=== PATIENT | male | born 1950 | race Two or more races ===

== ENCOUNTER 2019-03-18 16:29 | Inpatient (IN) | payer OTHER ==
[2019-03-18 21:14] VITALS: BMI 18.8
--- NOTE | 2019-03-18 22:29 | HP ---
COWS - Scale Resting Pulse: 0= MO 80 or Below Sweatin=Flushed/Facial Moisture Restless Observation: 1= Difficult to Sit Still Pupil Size: 0= Normal to Room Light Bone or Joint Aches: 4=Acute Joint/Muscle Pain Runny Nose/ Eye Tearin= Runny Nose/Eyes (vomiting x 1) GI Upset > 30mins: 1= Stomach Cramp Tremor Observation: 2= Slight Tremor Visible Yawning Observation: 1= 1-2x During Session Anxiety or Irritability: 2=Irritable/Anxious Goose Flesh Skin: 3=Piloerection COWS Score: 18 CIWA Score - Admission Criteria [facility] Guidelines: Admission for Medically Managed Detox: Requires at least one of the followin. CIWA greater than 12 2. Seizures within the past 24 hours 3. Delirium tremens within the past 24 hours 4. Hallucinations within the past 24 hours 5. Acute intervention needed for co occurring medical disorder 6. Acute intervention needed for co occurring psychiatric disorder 7. Severe withdrawal that cannot be handled at a lower level of care (continued vomiting, continued diarrhea, abnormal vital signs) requiring intravenous medication and/or fluids 8. Admission ROS [facility] Chief Complaint: Heroin withdrawal symptoms Allergies/Adverse Reactions: Allergies Allergy/AdvReac Type Severity Reaction Status Date / Time No Known Allergies Allergy Verified 03/18/19 21:08 History of Present Illness: 69 years old male with a long history of heroin dependence is seeking admission to detox. Patient has been to previous detox and reports 25 years of sobriety. He has medical history of HIV +, Asthma and peripheral neuropathy. He denies suicide attempt and suicidal ideation at this tiime Exam Limitations: No Limitations - Ebola screening Have you traveled outside of the country in the last 21 days: No Have you had contact with anyone from an Ebola affected area: No Do you have a fever: No - Review of Systems Constitutional: Chills, Loss of Appetite, Malaise, Night Sweats, Changes in sleep, Weakness EENT: reports: Sinus Pressure Respiratory: reports: No Symptoms reported Cardiac: reports: Lightheadedness GI: reports: Poor Appetite, Poor Fluid Intake : reports: No Symptoms Reported Musculoskeletal: reports: Back Pain, Joint Pain, Muscle Pain Integumentary: reports: Dryness, Flushing Neuro: reports: Tingling, Tremors Endocrine: reports: No Symptoms Reported Hematology: reports: No Symptoms Reported Psychiatric: reports: Mood/Affect Appropiate, Orientated x3, Anxious Other Systems: Reviewed and Negative Patient History - Patient Medical History Hx Anemia: No Hx Asthma: Yes (Albuterol) Hx Chronic Obstructive Pulmonary Disease (COPD): No Hx Cancer: No Hx Cardiac Disorders: No Hx Congestive Heart Failure: No Hx Hypertension: Yes Hx Hypercholesterolemia: No Hx Pacemaker: No HX Cerebrovascular Accident: No Hx Seizures: No Hx Dementia: No Hx Diabetes: No Hx Gastrointestinal Disorders: No Hx Liver Disease: No Hx Genitourinary Disorders: No Hx Sexually Transmitted Disorders: No Hx Renal Disease (ESRD): No Hx Human Immunodeficiency Virus (HIV): Yes (Truvada, ) Hx Depression: Yes Hx Suicide Attempt: No Hx Bipolar Disorder: No Hx Schizophrenia: No - Patient Surgical History Past Surgical History: No Hx Neurologic Surgery: No Hx Cataract Extraction: No Hx Cardiac Surgery: No Hx Lung Surgery: No Hx Breast Surgery: No Hx Breast Biopsy: No Hx Abdominal Surgery: No Hx Appendectomy: No Hx Cholecystectomy: Yes Hx Genitourinary Surgery: No Hx Orthopedic Surgery: Yes Anesthesia Reaction: No - Reproductive History Patient is a Female of Child Bearing Age (11 -55 yrs old): No (Male) - Smoking Cessation Smoking history: Former smoker Have you smoked in the past 12 months: No Hx Chewing Tobacco Use: No Initiated information on smoking cessation: Yes 'Breaking Loose' booklet given: 03/18/19 - Substance & Tx. History Hx Alcohol Use: No Hx Substance Use: Yes Substance Use Type: Cocaine, Heroin Hx Substance Use Treatment: Yes ([facility];) - Substances abused Cocaine Substance route: Injection Frequency: Daily Amount used: $100 Age of first use: 69 Date of last use: 03/18/19 Family Disease History - Family Disease History Family Disease History: [place]: Father Admission Physical Exam BHS - Vital Signs Vital Signs: Vital Signs - 24 hr 03/18/19 21:08 Temperature 98.7 F Pulse Rate 62 Respiratory 16 Rate Blood Pressure 142/82 - Physical General Appearance: Yes: Moderate Distress, Alcohol on Breath, Tremorous, Sweating, Anxious HEENTM: Yes: EOMI, Normal ENT Inspection, Normal Voice, REINA Respiratory: Yes: Lungs Clear, Normal Breath Sounds, No Respiratory Distress Neck: Yes: Supple Breast: Yes: Breast Exam Deferred Cardiology: Yes: Regular Rhythm, Regular Rate Abdominal: Yes: Normal Bowel Sounds, Soft Genitourinary: Yes: Within Normal Limits Back: Yes: Normal Inspection Musculoskeletal: Yes: Back pain Extremities: Yes: Tremors Neurological: Yes: Alert, Normal Mood/Affect Integumentary: Yes: Normal Color, Warm Lymphatic: Yes: Within Normal Limits - Diagnostic (1) Opioid dependence with withdrawal Current Visit: Yes Status: Acute (2) Asthma Current Visit: Yes Status: Acute (3) HIV (human immunodeficiency virus infection) Current Visit: Yes Status: Acute (4) Peripheral neuropathy Current Visit: Yes Status: Acute Qualifiers: Peripheral neuropathy type: polyneuropathy, other Qualified Code(s): G62.89 - Other specified polyneuropathies Cleared for Admission [facility] - Detox or Rehab [facility] Level of Care: Medically Managed Detox Regimen/Protocol: Methadone Inpatient Rehab Admission - Rehab Decision to Admit Inpatient rehab admission?: No
[2019-03-18] MEDS ORDERED: MAGNESIUM HYDROX 2400MG/30ML ORAL SUSPENSION 30 ML CUP PO PRN (22:43)
[2019-03-18] MEDS ORDERED: cloNIDine HCL 0.1 MG TABLET PO PRN (22:43)
[2019-03-18] MEDS ORDERED: ACETAMINOPHEN 325 MG TABLET (FP) PO PRN ×2 (22:43)
[2019-03-18] MEDS ORDERED: MAGNESIUM CITRATE 300 ML BOTTLE PO PRN (22:43)
[2019-03-18] MEDS ORDERED: METHADONE HCL 10 MG TABLET (FOR DETOX USE ONLY) PO ONE (23:00)
[2019-03-19] MEDS: MENTHOL/PHENOL 1 EACH UD MM PRN ×2 (05:55→17:41)
--- NOTE | 2019-03-19 08:26 | EKG ---
Test Reason : Blood Pressure : / mmHG Vent. Rate : 057 BPM Atrial Rate : 057 BPM P-R Int : 140 ms QRS Dur : 090 ms QT Int : 422 ms P-R-T Axes : 069 073 069 degrees QTc Int : 410 ms SINUS BRADYCARDIA VOLTAGE CRITERIA FOR LEFT VENTRICULAR HYPERTROPHY ABNORMAL ECG NO PREVIOUS ECGS AVAILABLE Confirmed by ZANE JOHN, ATIF ([id number]) on 03/19/2019 8:26:02 AM Referred By: RAUL MARTINEZ Confirmed By:ATIF DEGROOT MD
[2019-03-19] MEDS ORDERED: METHADONE HCL 10 MG TABLET (FOR DETOX USE ONLY) PO ONE (10:00)
[2019-03-19] MEDS: PRENATAL VITAMINS W/ FOLIC ACID TABLET (FP) PO SCH (10:13)
--- NOTE | 2019-03-19 10:21 | PN ---
BHS COWS - Scale Resting Pulse: 0= [place] 80 or Below Sweatin=Flushed/Facial Moisture Restless Observation: 1= Difficult to Sit Still Pupil Size: 0= Normal to Room Light Bone or Joint Aches: 2= Severe Diffuse Aches Runny Nose/ Eye Tearin= Runny Nose/Eyes GI Upset > 30mins: 1= Stomach Cramp Tremor Observation of Outstretched Hands: 2= Slight Tremor Visible Yawning Observation: 2= >3x During Session Anxiety or Irritability: 2=Irritable/Anxious Goose Flesh Skin: 3=Piloerection COWS Score: 17 BHS Progress Note (SOAP) Subjective: running nose/nasal congestion body aches sweats shakes chills interrupted sleep poor appetite Objective: 03/19/19 10:20 Vital Signs Temperature 98.2 F 03/19/19 10:01 Pulse Rate 62 03/19/19 10:01 Respiratory Rate 16 03/19/19 10:01 Blood Pressure 122/68 03/19/19 10:01 O2 Sat by Pulse Oximetry (%) labs pending aaox3 ambulating no acute distress Assessment: 03/19/19 10:20 withdrawal sx Plan: continue detox increase fluids acitifed ordered ensure bid
[2019-03-19 12:42] LABS: ALBUMIN 3.3 g/dl (3.4-5.0); ALK PHOS 105 U/L (45-117); ANION GAP 5 MMOL/L (8-16); BILIRUBIN,TOTAL 0.5 mg/dL (0.2-1); BLOOD UREA NITROGEN 17 mg/dL (7-18); CHLORIDE 102 mmol/L (98-107); CO2 32 mmol/L (21-32); CREATININE 0.9 mg/dL (0.55-1.3); GLUCOSE,RANDOM 91 mg/dL (74-106); POTASSIUM 4.6 mmol/L (3.5-5.1); SGOT/AST 28 U/L (15-37); SGPT/ALT 20 U/L (13-61); SODIUM 138 mmol/L (136-145); TOT PROT 7.5 g/dl (6.4-8.2)
[2019-03-19 12:43] LABS: HEMATOCRIT 39.9 % (35.4-49); HEMOGLOBIN 12.7 GM/dL (11.7-16.9); MCH 26.8 pg (25.7-33.7); MCHC 31.7 g/dl (32.0-35.9); MEAN CELL VOLUME 84.5 fl (80-96); MEAN PLT VOLUME 8.9 fl (7.5-11.1); PLATELET COUNT 228 K/MM3 (134-434); RBC 4.72 M/mm3 (4.00-5.60); RDW 15.8 % (11.9-15.9); WHITE BLOOD COUNT 4.8 K/mm3 (4.0-10.0)
[2019-03-19] MEDS: EMTRICITABINE 200MG/TENOFOVIR 300MG PO SCH (13:46)
[2019-03-19] MEDS: P-EPHED 60MG/TRIPROLIDI 2.5MG TABLET PO PRN (17:41)
[2019-03-19] MEDS: MELATONIN 5 MG TABLETS PO PRN (22:43)
[2019-03-19] MEDS: METHOCARBAMOL 500 MG TABLET PO PRN (22:43)
[2019-03-19] MEDS: THIAMINE HCL 100 MG TABLET (FP) PO SCH (22:43)
[2019-03-20] MEDS ORDERED: METHADONE HCL 10 MG TABLET (FOR DETOX USE ONLY) PO ONE (10:00)
[2019-03-20] MEDS: PRENATAL VITAMINS W/ FOLIC ACID TABLET (FP) PO SCH (10:06)
[2019-03-20] MEDS: EMTRICITABINE 200MG/TENOFOVIR 300MG PO SCH (10:06)
[2019-03-20] MEDS ORDERED: ONDANSETRON *ODT* 4 MG TABLET SL PRN (11:50)
--- NOTE | 2019-03-20 11:54 | PN ---
S COWS - Scale Resting Pulse: 0= [place] 80 or Below Sweatin=Flushed/Facial Moisture Restless Observation: 1= Difficult to Sit Still Pupil Size: 0= Normal to Room Light Bone or Joint Aches: 2= Severe Diffuse Aches Runny Nose/ Eye Tearin= Runny Nose/Eyes GI Upset > 30mins: 0= None Tremor Observation of Outstretched Hands: 1= Tremor [place], Not Seen Yawning Observation: 1= 1-2x During Session Anxiety or Irritability: 2=Irritable/Anxious Goose Flesh Skin: 0=Smooth Skin COWS Score: 11 [facility] Progress Note (SOAP) Subjective: nasal congestion runny/teary eyes nausea muscle cramps interrupted sleep Objective: 03/20/19 11:52 Vital Signs Temperature 99.0 F 03/20/19 09:22 Pulse Rate 69 03/20/19 09:22 Respiratory Rate 16 03/20/19 09:22 Blood Pressure 127/77 03/20/19 09:22 O2 Sat by Pulse Oximetry (%) Laboratory Tests 03/19/19 03/19/19 03/19/19 07:30 07:30 07:30 WBC 4.8 RBC 4.72 Hgb 12.7 Hct 39.9 MCV 84.5 MCH 26.8 MCHC 31.7 L RDW 15.8 Plt Count 228 MPV 8.9 Sodium 138 Potassium 4.6 Chloride 102 Carbon Dioxide 32 Anion Gap 5 L BUN 17 Creatinine 0.9 Creat Clearance w eGFR 83.18 Random Glucose 91 Calcium 9.0 Total Bilirubin 0.5 AST 28 ALT 20 Alkaline Phosphatase 105 Total Protein 7.5 Albumin 3.3 L RPR Titer Nonreactive aaox3 ambulating no acute distress Assessment: 03/20/19 11:53 withdrawal sx Plan: continue detox increase fluids ocean spray acitifed prn baclofen valium prn zofran prn
[2019-03-20] MEDS: hydrOXYzine PAMOATE 25 MG CAPSULE (FP) PO PRN (13:37)
[2019-03-20] MEDS: BACLOFEN 10 MG TABLET (FP) PO SCH ×2 (13:37→23:05)
[2019-03-20] MEDS: diazePAM 5 MG TABLET PO PRN ×2 (13:37→23:06)
[2019-03-20] MEDS: SODIUM CHLORIDE NASAL SPRAY 44 ML BOTTLE NS PRN (13:38)
[2019-03-20] MEDS: P-EPHED 60MG/TRIPROLIDI 2.5MG TABLET PO PRN (13:38)
[2019-03-20] MEDS: THIAMINE HCL 100 MG TABLET (FP) PO SCH (23:04)
[2019-03-20] MEDS: MELATONIN 5 MG TABLETS PO PRN (23:07)
[2019-03-21] MEDS: BACLOFEN 10 MG TABLET (FP) PO SCH ×3 (05:35→23:00)
[2019-03-21] MEDS ORDERED: METHADONE HCL 10 MG TABLET (FOR DETOX USE ONLY) PO ONE (10:00)
[2019-03-21] MEDS: PRENATAL VITAMINS W/ FOLIC ACID TABLET (FP) PO SCH (10:11)
[2019-03-21] MEDS: EMTRICITABINE 200MG/TENOFOVIR 300MG PO SCH (10:11)
[2019-03-21] MEDS: diazePAM 5 MG TABLET PO PRN ×2 (10:14→18:59)
--- NOTE | 2019-03-21 11:36 | PN ---
BHS Progress Note (SOAP) Subjective: body aches sweats interrupted sleep anxiety i am having craving to use if i go home Objective: 03/21/19 11:36 Vital Signs Temperature 98.2 F 03/21/19 09:55 Pulse Rate 61 03/21/19 09:55 Respiratory Rate 18 03/21/19 09:55 Blood Pressure 122/83 03/21/19 09:55 O2 Sat by Pulse Oximetry (%) aaox3 ambulating no acute distress Assessment: 03/21/19 11:42 withdrawal sx Plan: continue detox increase fluids d/c on Sunday order placed.
[2019-03-21] MEDS: IBUPROFEN 400 MG TABLET (FP) PO PRN (21:04)
[2019-03-21] MEDS: MAG HYDROX/AL HYDROX/SIMETH 30 ML UNIT-DOSE CUP PO PRN (21:05)
[2019-03-21] MEDS ORDERED: ASPIRIN 81 MG CHEWABLE TABLETS PO ONE (21:06)
--- NOTE | 2019-03-21 21:39 | PN ---
MAR[facility] Progress Note Note: Patient complained of chest pain. EKG done and Aspirin 81mg tablet oral ordered. Patient was not relieved and requested to be transferred to ER . Endorsed to Dr. Sims
[2019-03-21] MEDS: THIAMINE HCL 100 MG TABLET (FP) PO SCH (23:01)
[2019-03-22] MEDS: BACLOFEN 10 MG TABLET (FP) PO SCH ×3 (05:46→21:50)
[2019-03-22] MEDS: diazePAM 5 MG TABLET PO PRN ×4 (05:47→22:43)
[2019-03-22] MEDS ORDERED: METHADONE HCL 5 MG TABLET (FOR DETOX USE ONLY) PO ONE (06:00)
--- NOTE | 2019-03-22 10:30 | PN ---
S Progress Note (SOAP) Subjective: c/o body aches, nausea, and headache. Objective: 03/22/19 10:28 Vital Signs 03/22/19 03/22/19 08:22 09:50 Temperature 97.9 F 97.9 F Pulse Rate 56 L 53 L Respiratory 18 16 Rate Blood Pressure 154/87 140/92 Assessment: 03/22/19 10:28 AOX3, no distress noted, full rom withdrawal symptoms. Plan: continue detox increase fluids continue antiemetic/pain meds prn
[2019-03-22] MEDS: PRENATAL VITAMINS W/ FOLIC ACID TABLET (FP) PO SCH (12:02)
[2019-03-22] MEDS: EMTRICITABINE 200MG/TENOFOVIR 300MG PO SCH (12:02)
[2019-03-22] MEDS: MAG HYDROX/AL HYDROX/SIMETH 30 ML UNIT-DOSE CUP PO PRN ×2 (12:02→21:52)
[2019-03-22] MEDS: SODIUM CHLORIDE NASAL SPRAY 44 ML BOTTLE NS PRN (12:12)
[2019-03-22] MEDS: hydrOXYzine PAMOATE 25 MG CAPSULE (FP) PO PRN (12:14)
[2019-03-22] MEDS: THIAMINE HCL 100 MG TABLET (FP) PO SCH (21:59)
[2019-03-23] MEDS: diazePAM 5 MG TABLET PO PRN (04:34)
[2019-03-23] MEDS: BACLOFEN 10 MG TABLET (FP) PO SCH ×3 (06:18→23:02)
[2019-03-23] MEDS: PRENATAL VITAMINS W/ FOLIC ACID TABLET (FP) PO SCH (10:39)
[2019-03-23] MEDS: EMTRICITABINE 200MG/TENOFOVIR 300MG PO SCH (10:39)
--- NOTE | 2019-03-23 12:25 | EKG ---
Test Reason : Blood Pressure : / mmHG Vent. Rate : 059 BPM Atrial Rate : 059 BPM P-R Int : 154 ms QRS Dur : 084 ms QT Int : 426 ms P-R-T Axes : 081 075 077 degrees QTc Int : 421 ms POOR DATA QUALITY, INTERPRETATION MAY BE ADVERSELY AFFECTED SINUS BRADYCARDIA WITH PREMATURE ATRIAL COMPLEXES VOLTAGE CRITERIA FOR LEFT VENTRICULAR HYPERTROPHY ABNORMAL ECG WHEN COMPARED WITH ECG OF 18-MAR-2019 22:50, PREMATURE ATRIAL COMPLEXES ARE NOW PRESENT Confirmed by TOSIN ALVES MD ([id number]) on 03/23/2019 12:25:41 PM Referred By: Confirmed By:TOSIN ALVES MD
[2019-03-23] MEDS: MAG HYDROX/AL HYDROX/SIMETH 30 ML UNIT-DOSE CUP PO PRN (14:44)
[2019-03-23] MEDS ORDERED: RANITIDINE HCL 150 MG TABLET (FP) PO ONE (14:45)
--- NOTE | 2019-03-23 15:10 | PN ---
BHS COWS - Scale Resting Pulse: 0= CT 80 or Below Sweatin= No chills or Flushing Restless Observation: 0= Sits Still Pupil Size: 0= Normal to Room Light Bone or Joint Aches: 1= Mild Discomfort Runny Nose/ Eye Tearin= None GI Upset > 30mins: 1= Stomach Cramp Tremor Observation of Outstretched Hands: 0= None Yawning Observation: 0= None Anxiety or Irritability: 2=Irritable/Anxious Goose Flesh Skin: 0=Smooth Skin COWS Score: 4 BHS Progress Note (SOAP) Subjective: Anxious, stomachache, back pain, abdominal pain Objective: 03/23/19 15:09 Last Vital Signs Temp Pulse Resp BP Pulse Ox 98.6 F 72 16 158/92 03/23/19 14:09 03/23/19 14:09 03/23/19 14:09 03/23/19 14:09 B/P elevated 158/92 (has htn: on med) PE: Resp: lungs ctab/l, no adventitious breath sounds CV: rrr, s1s2+, apical rate 80 bmp, no m/g/r Abd: soft, nt, nd, + bs x4, no rebound tenderness, old healed surgery scar noted mid abdomen Neuro: A/A/Ox3, in nad, looks fragile/cachexic, gait steady Laboratory Tests 03/19/19 03/19/19 03/19/19 07:30 07:30 07:30 WBC 4.8 RBC 4.72 Hgb 12.7 Hct 39.9 MCV 84.5 MCH 26.8 MCHC 31.7 L RDW 15.8 Plt Count 228 MPV 8.9 Sodium 138 Potassium 4.6 Chloride 102 Carbon Dioxide 32 Anion Gap 5 L BUN 17 Creatinine 0.9 Creat Clearance w eGFR 83.18 Random Glucose 91 Calcium 9.0 Total Bilirubin 0.5 AST 28 ALT 20 Alkaline Phosphatase 105 Total Protein 7.5 Albumin 3.3 L RPR Titer Nonreactive Labs reviewed Assessment: 03/23/19 15:14 Withdrawal symptoms Noted with HTN, not treated Plan: Continue detox Encouraged PO water intake HTN: start norvasc 5mg PO daily, first dose today Stomachache: zantac 150mg PO bid as maalox not effective as per RN, send h. pylori serum in AM Patient for discharge tomorrow to [facility] Patient is stable for rehab admission
[2019-03-23] MEDS: amLODIPine BESYLATE 5 MG TABLET (FP) PO ONE (16:04)
[2019-03-23] MEDS: IBUPROFEN 400 MG TABLET (FP) PO PRN (20:39)
[2019-03-23] MEDS: THIAMINE HCL 100 MG TABLET (FP) PO SCH (23:03)
[2019-03-23] MEDS: RANITIDINE HCL 150 MG TABLET (FP) PO SCH (23:03)
[2019-03-24] MEDS: METHOCARBAMOL 500 MG TABLET PO PRN (01:21)
--- NOTE | 2019-03-24 01:35 | PN ---
S Progress Note Note: MD'S NOTE: CALLED TO SEE THE PT. WHO IS C/O ONGOING PAIN IN THE CHEST AND ALL OVER THE BODY H/O SIMILAR EPISODES IN THE PAST FEW DAYS++. V/S: -137/91 O/E: THE PT. IS ANGUIANO X 3 AND MOANING NOW AND THEN BUT NOT IN DISTRESS MUSCLE WASTING FROM AIDS++ S/E: CVS: NO JVD, NL HEART SOUNDS, NO MURMURS LUNGS: VESICULAR BREATH SOUNDS, NO RALES, NO RHONCHI ABD: SOFT, NO RIGIDITY, BS+ PLEASE NOTE: MERE TOUCHING THE BODY ELICITS PAIN IMPRESSION: MUSCULO-SKELETAL PAIN/NEUROPATHIC PAIN PLANS: -EKG: NO SIGNIFICANT NEW ST-T CHANGES NOTED -TO CONTINUE MUSCLE RELAXANTS AND ANALGESICS -NEURONTIN 100MGS PO TID -OBSERVATION PROVIDER: AMBER CATALAN MD
[2019-03-24] MEDS: GABAPENTIN 100 MG CAPSULE (FP) PO SCH ×4 (01:43→21:07)
[2019-03-24] MEDS: BACLOFEN 10 MG TABLET (FP) PO SCH ×3 (07:11→21:07)
--- NOTE | 2019-03-24 10:01 | EKG ---
Test Reason : Blood Pressure : / mmHG Vent. Rate : 068 BPM Atrial Rate : 068 BPM P-R Int : 144 ms QRS Dur : 082 ms QT Int : 412 ms P-R-T Axes : 083 077 082 degrees QTc Int : 438 ms SINUS RHYTHM WITH MARKED SINUS ARRHYTHMIA VOLTAGE CRITERIA FOR LEFT VENTRICULAR HYPERTROPHY ABNORMAL ECG WHEN COMPARED WITH ECG OF 22-MAR-2019 00:42, NO SIGNIFICANT CHANGE WAS FOUND Confirmed by BOBBY LIMA MD ([id number]) on 03/24/2019 10:00:46 AM Referred By: Confirmed By:BOBBY LIMA MD
[2019-03-24] MEDS: EMTRICITABINE 200MG/TENOFOVIR 300MG PO SCH (10:53)
[2019-03-24] MEDS: RANITIDINE HCL 150 MG TABLET (FP) PO SCH ×2 (10:54→21:07)
[2019-03-24] MEDS: PRENATAL VITAMINS W/ FOLIC ACID TABLET (FP) PO SCH (10:54)
[2019-03-24] MEDS: amLODIPine BESYLATE 5 MG TABLET (FP) PO SCH (10:54)
--- NOTE | 2019-03-24 13:52 | DS ---
[facility] Detox Discharge Summary Admission Date: 03/18/19 Discharge Date: 03/24/19 - History Present History: Opioid Dependence Additional Comments: PATIENT GOING TO [facility] ([place], [place]) FOR AFTERCARE. PATIENT ADVISED TO FOLLOW-UP WITH [facility] ([place], [place]) AFTER DISCHARGE FROM REHAB UNIT FOR GENERAL MEDICAL ASSESSMENT AND FOR CHEST PAIN (AND BODY PAIN) THAT OCCURRED WHILE HE WAS ON DETOX UNIT. PATIENT VERBALIZED UNDERSTANDING OF RECOMMENDATION. PATIENT WAS EVALUATED AT [facility] ER YESTERDAY FOR THIS CONDITION. PATIENT WAS DISCHARGED FORM DETOX UNIT TO BE TAKEN OVER TO REHAB UNIT IN STABLE MEDICAL CONDITION. Pertinent Past History: H.I.V., Nicotine Dependence, Chest Pain, Asthma, Peripheral Neuropathy, HTN, Depression. - Physical Exam Results Vital Signs: Vital Signs Temperature 97.7 F 03/24/19 09:02 Pulse Rate 78 03/24/19 09:02 Respiratory Rate 16 03/24/19 09:02 Blood Pressure 117/80 03/24/19 09:02 O2 Sat by Pulse Oximetry (%) Pertinent Admission Physical Exam Findings: WITHDRAWAL SYMPTOMS. Laboratory Tests 03/19/19 03/19/19 03/19/19 07:30 07:30 07:30 WBC 4.8 RBC 4.72 Hgb 12.7 Hct 39.9 MCV 84.5 MCH 26.8 MCHC 31.7 L RDW 15.8 Plt Count 228 MPV 8.9 Sodium 138 Potassium 4.6 Chloride 102 Carbon Dioxide 32 Anion Gap 5 L BUN 17 Creatinine 0.9 Creat Clearance w eGFR 83.18 Random Glucose 91 Calcium 9.0 Total Bilirubin 0.5 AST 28 ALT 20 Alkaline Phosphatase 105 Total Protein 7.5 Albumin 3.3 L RPR Titer Nonreactive LABS NOTED. - Treatment Hospital Course: Detox Protocol Followed, Detoxed Safely, Responded well, Discharged Condition Good, Rehab Referral Accepted Patient has Accepted a Rehab Referral to: [facility] ([place], [place]). - Medication Discharge Medications: Ambulatory Orders Emtricitabine/Tenofovir [Truvada -] 1 each PO DAILY 03/18/19 - Diagnosis (1) Asthma Current Visit: Yes Status: Acute Qualifiers: Asthma severity: unspecified severity Asthma persistence: unspecified Asthma complication type: uncomplicated Qualified Code(s): J45.909 - Unspecified asthma, uncomplicated (2) HIV (human immunodeficiency virus infection) Current Visit: Yes Status: Acute Qualifiers: HIV symptom status: unspecified Qualified Code(s): B20 - Human immunodeficiency virus [HIV] disease (3) Opioid dependence with withdrawal Current Visit: Yes Status: Acute (4) Peripheral neuropathy Current Visit: Yes Status: Acute Qualifiers: Peripheral neuropathy type: polyneuropathy, other Qualified Code(s): G62.89 - Other specified polyneuropathies (5) Chest pain Current Visit: Yes Status: Acute Qualifiers: Chest pain type: unspecified Qualified Code(s): R07.9 - Chest pain, unspecified - AMA Did Patient Leave Against Medical Advice: No
--- NOTE | 2019-03-24 13:59 | HP ---
[facility] Rehab Assess/Revision - Admission History Admitted to Rehab from: [facility] Date of Admission to Rehab: 03/24/2019 - Vital signs Vital Signs: Vital Signs Period Temp Pulse Resp BP Sys/Lowry Pulse Ox Last 24 Hr 97.7 F-98.9 F 70-84 16-20 117-158/80-99 - Findings Detox History & Physical reviewed: Yes Concur with findings: Yes Comments/Additional Findings: PATIENT'S MEDICAL / MEDICATION HISTORY REVIEWED PRIOR TO DISCHARGE FROM DETOX UNIT. PATIENT ADVISED TO FOLLOW-UP WITH [facility] ([place], [place]) AFTER DISCHARGE FROM REHAB UNIT FOR GENERAL MEDICAL ASSESSMENT AND FOR CHEST PAIN (AND BODY PAIN) THAT OCCURRED WHILE HE WAS ON DETOX UNIT. PATIENT VERBALIZED UNDERSTANDING OF RECOMMENDATION. PATIENT WAS EVALUATED AT [facility] ER YESTERDAY FOR THIS CONDITION. WILL CONTINUE TO MONITOR PATIENT FOR ANY FURTHER DEVELOPEMENT IN / RECURRENCES OF CHEST / BODY PAIN WHILE HE IS ADMITTED ON REHAB UNIT. PATIENT WAS DISCHARGED FROM DETOX UNIT TO BE TAKEN OVER TO REHAB UNIT IN STABLE MEDICAL CONDITION. Inpatient Rehab Admission - Rehab Decision to Admit Inpatient rehab admission?: Yes - Initial Determination Are CD services needed?: Yes Free of communicable disease: Yes Not in need of hospitalization: Yes - Rehab Admission Criteria Previous failed treatment: Yes Poor recovery environment: Yes Comorbidities: Yes Lacks judgement: Yes Patient is meeting Inpatient Rehab admission criteria:: Yes
--- NOTE | 2019-03-24 14:24 | PN ---
[facility] Progress Note Note: PER PHARMACIST 'LEONILA' AT PATIENT'S PHARMACY ([address] [place] [address]), PATIENT IS PRESCRIBED DESCOVY (1 TABLET PO DAILY) AND TIVICAY, 50 MG (1 TABLET PO) DAILY. BOTH MEDICATIONS LAST DISPENSED 03/05/2019. ACCORDING TO LEONILA, PATIENT HAS BEEN PRESCRIBED AND DISPENSED BOTH MEDICATIONS TOGETHER FOR THE LAST SEVERAL MONTHS. AFTER CONSULTATION WITH [facility] PHARMACIST IVY, PATIENT WILL BE PRESCRIBED BOTH MEDICATIONS WHILE ADMITTED TO REHAB UNIT. Bubba WILSON NP
[2019-03-24] MEDS: THIAMINE HCL 100 MG TABLET (FP) PO SCH (21:07)
[2019-03-24] MEDS: IBUPROFEN 400 MG TABLET (FP) PO PRN (21:07)
[2019-03-25] MEDS: MELATONIN 5 MG TABLETS PO PRN ×2 (00:57→21:12)
[2019-03-25] MEDS: GABAPENTIN 100 MG CAPSULE (FP) PO SCH ×3 (07:37→21:11)
[2019-03-25] MEDS: BACLOFEN 10 MG TABLET (FP) PO SCH ×3 (07:37→21:11)
[2019-03-25] MEDS: RANITIDINE HCL 150 MG TABLET (FP) PO SCH ×2 (10:56→21:11)
[2019-03-25] MEDS: PRENATAL VITAMINS W/ FOLIC ACID TABLET (FP) PO SCH (10:56)
[2019-03-25] MEDS: amLODIPine BESYLATE 5 MG TABLET (FP) PO SCH (10:56)
[2019-03-25] MEDS: EMTRICITABINE/TENOFOV ALAFENAM (DESCOVY) TABLET PO SCH (10:57)
[2019-03-25] MEDS: DOLUTEGRAVIR SODIUM 50 MG TABLET (NON-FORMULARY) PO SCH (10:57)
--- NOTE | 2019-03-25 11:13 | PN ---
[facility] Progress Note Note: PT IS A 69 Y/O MALE WITH A HX OF HIV+, ASTHMA AND HTN HERE IN REHAB. 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 STATED PT HAS POSSIBLE PNEUMONIA(SEE CXR IMPRESSION BELOW ). PT CAME TO REHAB YESTERDAY 03/24/19 FROM DETOX. PT DENIES CURRENT C/P. PT REPORTS STOMACH UPSET WITH N/V YESTERDAY BUT NOT TODAY. PT UNABLE TO REMEMBER THE LAST NAME OF HIS PCP BUT STATES HER NAME IS NIR ON [address] [place] AND [address] [place] [address]. PT ALSO REPORTS HE HAD BEEN TO AN ER ???[facility] A FEW WEEKS AGO AND WAS TOLD HE HAD LEFT PNEUMONIA AND TOOK 4 PILLS OF ANTIBIOTICS. Vital Signs - 24 hr 03/24/19 03/25/19 03/25/19 15:18 00:30 03:30 Temperature 97.4 F L Pulse Rate 86 Respiratory 16 18 18 Rate Blood Pressure 117/71 03/25/19 06:46 Temperature 97.1 F L Pulse Rate 80 Respiratory 16 Rate Blood Pressure 120/65 Laboratory Tests 03/19/19 03/19/19 03/19/19 07:30 07:30 07:30 WBC 4.8 RBC 4.72 Hgb 12.7 Hct 39.9 MCV 84.5 MCH 26.8 MCHC 31.7 L RDW 15.8 Plt Count 228 MPV 8.9 Sodium 138 Potassium 4.6 Chloride 102 Carbon Dioxide 32 Anion Gap 5 L BUN 17 Creatinine 0.9 Creat Clearance w eGFR 83.18 Random Glucose 91 Calcium 9.0 Total Bilirubin 0.5 AST 28 ALT 20 Alkaline Phosphatase 105 Total Protein 7.5 Albumin 3.3 L RPR Titer Nonreactive LABS REVIEWED WNL APPEARANCE:CACHEXIC, WEAK, SLOW ON AMBULATION WITH CANE CARDIAC:S1 S2 RRR, NO MM LUNGS:CTA, BILAT. NO WHEEZE, OR RHONCHI ABDOMEN:SOFT , SLIGHT EPIGASTRIC TENDERNESS-ON RANITIDINE EXTREMITIES:LOWER LEGS DRY/SCALY AND ASHY. NO SWELLING. TOE FUNGUS UPPER EXTREMITIES;BOTH LATERAL ASPECT OF HANDS AT BASES OF 5TH DIGIT WITH IVDU SITES. SLIGHT SWELLING, PAIN AND HARD ON PALPATION. POOR SKIN TUGOR CXR IMPRESSION:LARGE HEART. SLIGHT INCREASE IN LUNG MARKINGS LEFT MID AND LOWER LUNG FIELD COULD INDICATE EARLY INFILTRATE OR ATELECTASIS. CLIPS BY GE JUNCTION. FOLLOW- UP RECOMMENDED. PLAN:PT APPEARS ASYMPTOMATIC AT THIS TIME. NO FEVER, COUGH, OR ADVENTITIOUS LUNG SOUNDS. ALSO, REVIEW OF PT'S OUTSIDE PHARMACY MEDICATIONS AND PT HISTORY INDICATED PT WAS TREATED WITH AZYTHROMYCIN X 4 DAYS POSTED 03/04/19(MAYBE AFTER THE ER VISIT AT ???[facility]?). PT REPORTS HE COMPLETED THE TREATMENT, ALTHOUGH PT IS A POOR HISTORIAN AND UNABLE TO REMEMBER DETAILS. THIS CASE WAS D/W DR. WEISS AND WE CONCLUDED PT WILL BE FOLLOWED UP WITH ANOTHER XRAY IN 3-4 WEEKS/BEFORE DISCHARGE FOR ANY CHANGES. WILL MONITOR PATIENT FOR ACUTE/NEW SYMPTOMS FOR FOLLOW UP AT THE ER/TREATMENT.
[2019-03-25] MEDS ORDERED: AZITHROMYCIN 250 MG TABLET PO ONE (11:34)
[2019-03-25] MEDS ORDERED: AMOX TR/POT CLAV 875MG/125MG TABLETS (FP) PO ONE (12:00)
[2019-03-25] MEDS: BACITRACIN 15 GM TUBE TOPICAL OINTMENT TP SCH ×2 (14:16→22:16)
[2019-03-25] MEDS ORDERED: AMOX TR/POT CLAV 875MG/125MG TABLETS (FP) PO SCH (17:30)
[2019-03-25] MEDS: THIAMINE HCL 100 MG TABLET (FP) PO SCH (22:16)
[2019-03-26] MEDS: BACLOFEN 10 MG TABLET (FP) PO SCH ×3 (06:56→22:37)
[2019-03-26] MEDS: GABAPENTIN 100 MG CAPSULE (FP) PO SCH ×3 (06:56→22:37)
[2019-03-26] MEDS ORDERED: AZITHROMYCIN 250 MG TABLET PO SCH (10:00)
[2019-03-26] MEDS: amLODIPine BESYLATE 5 MG TABLET (FP) PO SCH (10:21)
[2019-03-26] MEDS: RANITIDINE HCL 150 MG TABLET (FP) PO SCH ×2 (10:21→22:37)
[2019-03-26] MEDS: PRENATAL VITAMINS W/ FOLIC ACID TABLET (FP) PO SCH (10:21)
[2019-03-26] MEDS: DOLUTEGRAVIR SODIUM 50 MG TABLET (NON-FORMULARY) PO SCH (10:22)
[2019-03-26] MEDS: EMTRICITABINE/TENOFOV ALAFENAM (DESCOVY) TABLET PO SCH (10:22)
[2019-03-26] MEDS: BACITRACIN 15 GM TUBE TOPICAL OINTMENT TP SCH ×2 (10:23→22:39)
--- NOTE | 2019-03-26 11:34 | PN ---
[facility] Progress Note Note: CALLED BY NURSE RONNIE TO EVALUATE A PT WITH C/O CHEST PAIN ESPECIALLY WHEN COUGHING,NAUSEA,VOMITING WITH STOMACH DISCOMFORT AND SOB. PT WAS EVALUATED IN THE ED ON 03/21/19 WITH CHEST PAIN AND SENT BACK TO [facility]. PORTABLE CHEST XRAY AT ED WITH SLIGHT INFILTRATE(SEE NOTE OF 03/25/19). PT REPORTED ANTIBIOTICS TREATMENT WITH AZYTHROMYCIN X "4 PILLS" 2-3 WEEKS AGO FOR "PNEUMONIA". Vital Signs 03/26/19 03/26/19 03/26/19 06:49 08:56 11:20 Temperature 97.3 F L Pulse Rate 80 90 91 H Respiratory 16 20 Rate Blood Pressure 116/73 111/72 149/92 O2 Sat by Pulse 97 Oximetry (%) PHYSICAL EXAM ALERT O X 3 CARDIAC:S1 S2 ,RRR EKG:PAC LVH WITH REPOLARIZATION ABNORMALITIES PROLONGED QT ABNORMAL ECG SIGNIFICANT CHANGES COMPARED TO PREVIOUS ECG OF 03/24/19 LUNGS;CTA, BILAT. NO WHEEZE OR RHONCHI O2 2L NC ABDOMEN:SOFT, TENDER TO PALPATE BRYAN. EPIGASTRIC REGION EXTREMITIES:NO EDEMA/CYANOSIS PLAN:TRANSFER PT VIA AMBULANCE AND EVALUATE IN ER FOR TREATMENT. SPOKE TO DR. MERLOS AT THE [facility] ER. INFORMED DR. Merlos PORTABLE CXR DONE IN THE ED ON 03/21/19. PT MAY RETURN TO [facility] AFTER STABILIZATION AND CLEARANCE TO CONTINUE REHAB TREATMENT.
[2019-03-26] MEDS ORDERED: ALBUTEROL SO4 8 GM HFA INHALER IH PRN (11:56)
--- NOTE | 2019-03-26 15:21 | EKG ---
Test Reason : Blood Pressure : / mmHG Vent. Rate : 082 BPM Atrial Rate : 082 BPM P-R Int : 142 ms QRS Dur : 086 ms QT Int : 418 ms P-R-T Axes : 076 067 078 degrees QTc Int : 488 ms SINUS RHYTHM WITH PREMATURE ATRIAL COMPLEXES LEFT VENTRICULAR HYPERTROPHY WITH REPOLARIZATION ABNORMALITY PROLONGED QT ABNORMAL ECG WHEN COMPARED WITH ECG OF 24-MAR-2019 00:13, PREMATURE ATRIAL COMPLEXES ARE NOW PRESENT T WAVE AMPLITUDE HAS DECREASED IN INFERIOR LEADS NONSPECIFIC T WAVE ABNORMALITY NOW EVIDENT IN LATERAL LEADS Confirmed by ZANE JOHN, ATIF ([id number]) on 03/26/2019 3:20:50 PM Referred By: Loulou ROBLES Confirmed By:ATIF DEGROOT MD
[2019-03-26] MEDS: THIAMINE HCL 100 MG TABLET (FP) PO SCH (22:37)
[2019-03-26] MEDS: IBUPROFEN 400 MG TABLET (FP) PO PRN (22:37)
[2019-03-27] MEDS: MELATONIN 5 MG TABLETS PO PRN ×2 (00:47→21:09)
[2019-03-27] MEDS: P-EPHED 60MG/TRIPROLIDI 2.5MG TABLET PO PRN (00:48)
[2019-03-27] MEDS: GABAPENTIN 100 MG CAPSULE (FP) PO SCH ×3 (06:22→21:08)
[2019-03-27] MEDS: BACLOFEN 10 MG TABLET (FP) PO SCH ×3 (06:22→21:08)
[2019-03-27] MEDS: IBUPROFEN 400 MG TABLET (FP) PO PRN ×2 (06:22→21:09)
--- NOTE | 2019-03-27 09:45 | PN ---
[facility] Progress Note Note: PT RETURNED FROM ER BACK TO [facility] YESTERDAY. Vital Signs - 24 hr 03/26/19 03/26/19 03/27/19 11:20 22:16 00:30 Temperature 98.6 F Pulse Rate 91 H 76 Respiratory 20 18 18 Rate Blood Pressure 149/92 125/89 O2 Sat by Pulse 97 Oximetry (%) 03/27/19 06:39 Temperature 98.2 F Pulse Rate 79 Respiratory 18 Rate Blood Pressure 129/83 O2 Sat by Pulse Oximetry (%) Laboratory Tests 03/19/19 03/19/19 03/19/19 07:30 07:30 07:30 WBC 4.8 RBC 4.72 Hgb 12.7 Hct 39.9 MCV 84.5 MCH 26.8 MCHC 31.7 L RDW 15.8 Plt Count 228 MPV 8.9 Sodium 138 Potassium 4.6 Chloride 102 Carbon Dioxide 32 Anion Gap 5 L BUN 17 Creatinine 0.9 Creat Clearance w eGFR 83.18 POC Glucometer Random Glucose 91 Calcium 9.0 Total Bilirubin 0.5 AST 28 ALT 20 Alkaline Phosphatase 105 Total Protein 7.5 Albumin 3.3 L RPR Titer Nonreactive H. pylori IgG Antibody H. pylori IgA Antibody 03/24/19 03/26/19 07:40 11:48 WBC RBC Hgb Hct MCV MCH MCHC RDW Plt Count MPV Sodium Potassium Chloride Carbon Dioxide Anion Gap BUN Creatinine Creat Clearance w eGFR POC Glucometer 102 Random Glucose Calcium Total Bilirubin AST ALT Alkaline Phosphatase Total Protein Albumin RPR Titer H. pylori IgG Antibody 1.17 H H. pylori IgA Antibody <9.0 TO FOLLOW UP ON THE ABOVE RESULT. PT CURRENTLY ON AZITHROMYCIN AND ZANTAC.
[2019-03-27] MEDS: BACITRACIN 15 GM TUBE TOPICAL OINTMENT TP SCH ×2 (10:24→21:07)
[2019-03-27] MEDS: amLODIPine BESYLATE 5 MG TABLET (FP) PO SCH (10:25)
[2019-03-27] MEDS: RANITIDINE HCL 150 MG TABLET (FP) PO SCH ×2 (10:25→21:07)
[2019-03-27] MEDS: PRENATAL VITAMINS W/ FOLIC ACID TABLET (FP) PO SCH (10:25)
[2019-03-27] MEDS: EMTRICITABINE/TENOFOV ALAFENAM (DESCOVY) TABLET PO SCH (10:26)
[2019-03-27] MEDS: DOLUTEGRAVIR SODIUM 50 MG TABLET (NON-FORMULARY) PO SCH (10:26)
[2019-03-27] MEDS: AZITHROMYCIN 250 MG TABLET PO SCH (11:52)
[2019-03-27] MEDS ORDERED: ALBUTEROL SO4 2.5/IPRATROPIUM 0.5 INH SOL 3 ML VIAL.NEB. NEB PRN (12:23)
[2019-03-27] MEDS: BISMUTH SUBSALICYLATE 524 MG/30 ML UD PO PRN (19:22)
[2019-03-27] MEDS: THIAMINE HCL 100 MG TABLET (FP) PO SCH (21:08)
[2019-03-28] MEDS: MAG HYDROX/AL HYDROX/SIMETH 30 ML UNIT-DOSE CUP PO PRN (01:57)
[2019-03-28] MEDS: GABAPENTIN 100 MG CAPSULE (FP) PO SCH ×3 (06:45→21:16)
[2019-03-28] MEDS: BACLOFEN 10 MG TABLET (FP) PO SCH ×3 (06:45→21:16)
[2019-03-28] MEDS: IBUPROFEN 400 MG TABLET (FP) PO PRN ×2 (08:57→21:17)
[2019-03-28] MEDS: DOLUTEGRAVIR SODIUM 50 MG TABLET (NON-FORMULARY) PO SCH (10:05)
[2019-03-28] MEDS: RANITIDINE HCL 150 MG TABLET (FP) PO SCH ×2 (10:06→21:16)
[2019-03-28] MEDS: amLODIPine BESYLATE 5 MG TABLET (FP) PO SCH (10:06)
[2019-03-28] MEDS: PRENATAL VITAMINS W/ FOLIC ACID TABLET (FP) PO SCH (10:06)
[2019-03-28] MEDS: AZITHROMYCIN 250 MG TABLET PO SCH (10:06)
[2019-03-28] MEDS: EMTRICITABINE/TENOFOV ALAFENAM (DESCOVY) TABLET PO SCH (10:07)
[2019-03-28] MEDS: BACITRACIN 15 GM TUBE TOPICAL OINTMENT TP SCH ×2 (10:08→21:16)
--- NOTE | 2019-03-28 13:08 | PN ---
[facility] Progress Note Note: EFFORT TO REACH PT'S PCP DR. NIR ZHAO TODAY AT [facility] WAS UNSUCCESSFUL. SPOKE TO A GENTLEMAN WHO STATED "[facility] ARE BUSY" HE TRANSFERRED ME TO AN UNKNOWN NUMBER WHICH QUICKLY DISCONNECTED. ANOTHER CALL WAS PLACED TO THEM AND A LADY ANSWERED AND INPATIENTLY TRANSFERRED THE PHONE BEFORE I COULD PRESENT ANY REQUEST. MEANWHILE, MR PERDOMO WAS WITH ME LISTENING AND WAITING TO SPEEK TO HIS PROVIDERS. HOWEVER, PT WAS TAKEN TO HIS COUNSELOR, ANTONIO WHERE HE WILL TRY MAKING THE CALL TO [facility]. PT NEEDED TO CONFIRM HIS NEXT DOCTOR'S APPOINTMENT WHICH HE LEFT THE PAPER AT HOME AND DOES NOT REMEMBER. PT WILL TAKE ALL THE [facility] ER DISCHARGE PAPERS WELL ALL DISCHARGE PAPERS FROM REHAB TREATMENT TO HIS PRIMARY CARE PROVIDER UPON DISCHARGE FOR FOLLOW UP CARE. PT IS OOB AND AMBULATING WITH NO DIFFICULTY WITH CANE. ALERT O X 3. Vital Signs 03/28/19 03/28/19 06:39 10:00 Temperature 98.1 F Pulse Rate 81 85 Respiratory 18 Rate Blood Pressure 142/75 113/68 PLAN:CONTINUE REHAB MONITOR SAFETY.
[2019-03-28] MEDS: SODIUM CHLORIDE NASAL SPRAY 44 ML BOTTLE NS PRN ×2 (14:39→21:19)
[2019-03-28] MEDS: MELATONIN 5 MG TABLETS PO PRN (21:16)
[2019-03-28] MEDS: THIAMINE HCL 100 MG TABLET (FP) PO SCH (21:16)
[2019-03-29] MEDS: MELATONIN 5 MG TABLETS PO PRN ×2 (02:20→21:14)
[2019-03-29] MEDS: BACLOFEN 10 MG TABLET (FP) PO SCH ×3 (06:10→21:14)
[2019-03-29] MEDS: GABAPENTIN 100 MG CAPSULE (FP) PO SCH ×3 (06:10→21:14)
[2019-03-29] MEDS: amLODIPine BESYLATE 5 MG TABLET (FP) PO SCH (09:48)
[2019-03-29] MEDS: RANITIDINE HCL 150 MG TABLET (FP) PO SCH ×2 (09:48→21:14)
[2019-03-29] MEDS: PRENATAL VITAMINS W/ FOLIC ACID TABLET (FP) PO SCH (09:48)
[2019-03-29] MEDS: SODIUM CHLORIDE NASAL SPRAY 44 ML BOTTLE NS PRN ×2 (09:48→16:07)
[2019-03-29] MEDS: EMTRICITABINE/TENOFOV ALAFENAM (DESCOVY) TABLET PO SCH (09:49)
[2019-03-29] MEDS: BACITRACIN 15 GM TUBE TOPICAL OINTMENT TP SCH ×2 (09:50→21:15)
[2019-03-29] MEDS: DOLUTEGRAVIR SODIUM 50 MG TABLET (NON-FORMULARY) PO SCH (09:50)
[2019-03-29] MEDS: AZITHROMYCIN 250 MG TABLET PO SCH (12:30)
[2019-03-29] MEDS: THIAMINE HCL 100 MG TABLET (FP) PO SCH (21:14)
[2019-03-30] MEDS: GABAPENTIN 100 MG CAPSULE (FP) PO SCH ×3 (06:21→21:08)
[2019-03-30] MEDS: BACLOFEN 10 MG TABLET (FP) PO SCH ×3 (06:21→22:04)
[2019-03-30] MEDS: SODIUM CHLORIDE NASAL SPRAY 44 ML BOTTLE NS PRN (09:54)
[2019-03-30] MEDS: DOLUTEGRAVIR SODIUM 50 MG TABLET (NON-FORMULARY) PO SCH (09:55)
[2019-03-30] MEDS: RANITIDINE HCL 150 MG TABLET (FP) PO SCH ×2 (09:55→21:10)
[2019-03-30] MEDS: PRENATAL VITAMINS W/ FOLIC ACID TABLET (FP) PO SCH (09:55)
[2019-03-30] MEDS: EMTRICITABINE/TENOFOV ALAFENAM (DESCOVY) TABLET PO SCH (09:55)
[2019-03-30] MEDS: AZITHROMYCIN 250 MG TABLET PO SCH (09:55)
[2019-03-30] MEDS: amLODIPine BESYLATE 5 MG TABLET (FP) PO SCH (09:55)
[2019-03-30] MEDS: BACITRACIN 15 GM TUBE TOPICAL OINTMENT TP SCH ×2 (09:57→21:08)
[2019-03-30] MEDS ORDERED: ALBUTEROL SO4 8 GM HFA INHALER IH PRN (16:45)
[2019-03-30] MEDS: MELATONIN 5 MG TABLETS PO PRN (21:08)
[2019-03-30] MEDS: THIAMINE HCL 100 MG TABLET (FP) PO SCH (21:08)
[2019-03-30] MEDS: BISMUTH SUBSALICYLATE 524 MG/30 ML UD PO PRN (21:10)
[2019-03-31] MEDS: IBUPROFEN 400 MG TABLET (FP) PO PRN (02:25)
[2019-03-31] MEDS: MELATONIN 5 MG TABLETS PO PRN ×2 (02:26→21:09)
[2019-03-31] MEDS: GABAPENTIN 100 MG CAPSULE (FP) PO SCH ×3 (07:12→21:09)
[2019-03-31] MEDS: BACLOFEN 10 MG TABLET (FP) PO SCH ×3 (07:49→21:09)
[2019-03-31] MEDS: AZITHROMYCIN 250 MG TABLET PO SCH (10:07)
[2019-03-31] MEDS: amLODIPine BESYLATE 5 MG TABLET (FP) PO SCH (10:07)
[2019-03-31] MEDS: PRENATAL VITAMINS W/ FOLIC ACID TABLET (FP) PO SCH (10:09)
[2019-03-31] MEDS: SODIUM CHLORIDE NASAL SPRAY 44 ML BOTTLE NS PRN (10:10)
[2019-03-31] MEDS: DOLUTEGRAVIR SODIUM 50 MG TABLET (NON-FORMULARY) PO SCH (10:10)
[2019-03-31] MEDS: BACITRACIN 15 GM TUBE TOPICAL OINTMENT TP SCH ×2 (10:11→21:10)
[2019-03-31] MEDS: EMTRICITABINE/TENOFOV ALAFENAM (DESCOVY) TABLET PO SCH (10:11)
[2019-03-31] MEDS: RANITIDINE HCL 150 MG TABLET (FP) PO SCH ×2 (12:47→21:09)
[2019-03-31] MEDS: THIAMINE HCL 100 MG TABLET (FP) PO SCH (21:09)
[2019-04-01] MEDS: BACLOFEN 10 MG TABLET (FP) PO SCH ×3 (06:27→21:13)
[2019-04-01] MEDS: GABAPENTIN 100 MG CAPSULE (FP) PO SCH ×3 (06:27→21:13)
[2019-04-01] MEDS: DOLUTEGRAVIR SODIUM 50 MG TABLET (NON-FORMULARY) PO SCH (09:53)
[2019-04-01] MEDS: EMTRICITABINE/TENOFOV ALAFENAM (DESCOVY) TABLET PO SCH (09:53)
[2019-04-01] MEDS: PRENATAL VITAMINS W/ FOLIC ACID TABLET (FP) PO SCH (09:54)
[2019-04-01] MEDS: BACITRACIN 15 GM TUBE TOPICAL OINTMENT TP SCH ×2 (09:54→21:14)
[2019-04-01] MEDS: amLODIPine BESYLATE 5 MG TABLET (FP) PO SCH (09:54)
[2019-04-01] MEDS: RANITIDINE HCL 150 MG TABLET (FP) PO SCH ×2 (09:54→21:13)
--- NOTE | 2019-04-01 15:31 | PN ---
[facility] Progress Note Note: NIGHT NURSING STAFF REPORTED THAT PT C/O "BLACK/DARK" STOOL. DENIED AHSAN BLEEDING ON TISSUE. PT WAS INSTRUCTED TO INFORM THIS SHIFT WHEN HE HAS ANOTHER BM. Vital Signs - 24 hr 04/01/19 04/01/19 04/01/19 00:30 03:30 06:45 Temperature 97.7 F Pulse Rate 78 Respiratory 18 18 16 Rate Blood Pressure 117/84 04/01/19 10:00 Temperature Pulse Rate 83 Respiratory Rate Blood Pressure 111/67 Laboratory Tests 03/19/19 03/19/19 03/19/19 07:30 07:30 07:30 WBC 4.8 RBC 4.72 Hgb 12.7 Hct 39.9 MCV 84.5 MCH 26.8 MCHC 31.7 L RDW 15.8 Plt Count 228 MPV 8.9 Sodium 138 Potassium 4.6 Chloride 102 Carbon Dioxide 32 Anion Gap 5 L BUN 17 Creatinine 0.9 Creat Clearance w eGFR 83.18 POC Glucometer Random Glucose 91 Calcium 9.0 Total Bilirubin 0.5 AST 28 ALT 20 Alkaline Phosphatase 105 Total Protein 7.5 Albumin 3.3 L RPR Titer Nonreactive H. pylori IgG Antibody H. pylori IgA Antibody 03/24/19 03/26/19 03/28/19 07:40 11:48 06:45 WBC RBC Hgb Hct MCV MCH MCHC RDW Plt Count MPV Sodium Potassium Chloride Carbon Dioxide Anion Gap BUN Creatinine Creat Clearance w eGFR POC Glucometer 102 90 Random Glucose Calcium Total Bilirubin AST ALT Alkaline Phosphatase Total Protein Albumin RPR Titer H. pylori IgG Antibody 1.17 H H. pylori IgA Antibody <9.0 03/29/19 06:39 WBC RBC Hgb Hct MCV MCH MCHC RDW Plt Count MPV Sodium Potassium Chloride Carbon Dioxide Anion Gap BUN Creatinine Creat Clearance w eGFR POC Glucometer 113 Random Glucose Calcium Total Bilirubin AST ALT Alkaline Phosphatase Total Protein Albumin RPR Titer H. pylori IgG Antibody H. pylori IgA Antibody AT ABOUT 3:00 P.M PT REPORTS A BM ABOUT THIS TIME. VISUAL EXAM:THIS AMORTIZATION CLERK WAS CALLED BY NURSE PIÑA WHO REPORTED (-) FINDING. BOTH NURSE AND AMORTIZATION CLERK WENT BACK TO PATIENT'S ROOM. TOILET BOWL WITH SOFT LOOKING BUT FORMED SMALL PIECES OF STOOL, BROWN COLORED. NO BLOOD STREAKS ON STOOL OR IN TOILET BOWL WATER WAS NOTED. PLAN:D/W NURSE AND PT TO CONTINUE TO MONITOR PT'S BM. INFORM MD/LABOR ECONOMICS TEACHER OF ANY CHANGES. REPEAT CBC IN AM R/O GI BLEEDING.
[2019-04-01] MEDS: BISMUTH SUBSALICYLATE 524 MG/30 ML UD PO PRN (18:05)
[2019-04-01] MEDS: THIAMINE HCL 100 MG TABLET (FP) PO SCH (21:13)
[2019-04-01] MEDS: MELATONIN 5 MG TABLETS PO PRN (21:14)
[2019-04-02] MEDS: IBUPROFEN 400 MG TABLET (FP) PO PRN (04:19)
[2019-04-02] MEDS: BACLOFEN 10 MG TABLET (FP) PO SCH ×3 (06:18→21:09)
[2019-04-02] MEDS: GABAPENTIN 100 MG CAPSULE (FP) PO SCH ×3 (06:18→21:09)
[2019-04-02] MEDS: DOLUTEGRAVIR SODIUM 50 MG TABLET (NON-FORMULARY) PO SCH (09:52)
[2019-04-02] MEDS: RANITIDINE HCL 150 MG TABLET (FP) PO SCH ×2 (09:52→21:09)
[2019-04-02] MEDS: amLODIPine BESYLATE 5 MG TABLET (FP) PO SCH (09:52)
[2019-04-02] MEDS: BACITRACIN 15 GM TUBE TOPICAL OINTMENT TP SCH ×2 (09:52→21:11)
[2019-04-02] MEDS: EMTRICITABINE/TENOFOV ALAFENAM (DESCOVY) TABLET PO SCH (09:52)
[2019-04-02] MEDS: PRENATAL VITAMINS W/ FOLIC ACID TABLET (FP) PO SCH (09:52)
[2019-04-02 10:34] LABS: HEMOGLOBIN 12.6 GM/dL (11.7-16.9); MCH 26.8 pg (25.7-33.7); MCHC 31.5 g/dl (32.0-35.9); MEAN PLT VOLUME 8.7 fl (7.5-11.1); PLATELET COUNT 230 K/MM3 (134-434); RBC 4.71 M/mm3 (4.00-5.60); RDW 16.4 % (11.9-15.9); WHITE BLOOD COUNT 6.9 K/mm3 (4.0-10.0)
[2019-04-02 15:01] LABS: PH,URINE 6.5 (5.0-8.0); URINE APPEARANCE CLEAR; URINE BILIRUBIN NEGATIVE (NEGATIVE); URINE COLOR YELLOW; URINE GLUCOSE (UA) NEGATIVE (NEGATIVE); URINE KETONE NEGATIVE (NEGATIVE); URINE LEUK ESTERASE NEGATIVE (NEGATIVE); URINE NITRITE NEGATIVE (NEGATIVE); URINE PROTEIN NEGATIVE (NEGATIVE); URINE UROBILINOGEN 0.2 mg/dL (0.2-1.0)
--- NOTE | 2019-04-02 15:30 | PN ---
[facility] Progress Note (SOAP) Subjective: C/O RIGHT EAR DISCOMFORT. Objective: 04/02/19 15:24 Laboratory Tests 03/19/19 03/19/19 03/19/19 07:30 07:30 07:30 WBC 4.8 RBC 4.72 Hgb 12.7 Hct 39.9 MCV 84.5 MCH 26.8 MCHC 31.7 L RDW 15.8 Plt Count 228 MPV 8.9 Sodium 138 Potassium 4.6 Chloride 102 Carbon Dioxide 32 Anion Gap 5 L BUN 17 Creatinine 0.9 Creat Clearance w eGFR 83.18 POC Glucometer Random Glucose 91 Calcium 9.0 Total Bilirubin 0.5 AST 28 ALT 20 Alkaline Phosphatase 105 Total Protein 7.5 Albumin 3.3 L Urine Color Urine Appearance Urine pH Ur Specific [place] Urine Protein Urine Glucose (UA) Urine Ketones Urine Blood Urine Nitrite Urine Bilirubin Urine Urobilinogen Ur Leukocyte Esterase RPR Titer Nonreactive H. pylori IgG Antibody H. pylori IgA Antibody 03/24/19 03/26/19 03/28/19 07:40 11:48 06:45 WBC RBC Hgb Hct MCV MCH MCHC RDW Plt Count MPV Sodium Potassium Chloride Carbon Dioxide Anion Gap BUN Creatinine Creat Clearance w eGFR POC Glucometer 102 90 Random Glucose Calcium Total Bilirubin AST ALT Alkaline Phosphatase Total Protein Albumin Urine Color Urine Appearance Urine pH Ur Specific [place] Urine Protein Urine Glucose (UA) Urine Ketones Urine Blood Urine Nitrite Urine Bilirubin Urine Urobilinogen Ur Leukocyte Esterase RPR Titer H. pylori IgG Antibody 1.17 H H. pylori IgA Antibody <9.0 03/29/19 04/02/19 04/02/19 06:39 07:25 12:00 WBC 6.9 RBC 4.71 Hgb 12.6 Hct 40.0 MCV 85.0 MCH 26.8 MCHC 31.5 L RDW 16.4 H Plt Count 230 MPV 8.7 Sodium Potassium Chloride Carbon Dioxide Anion Gap BUN Creatinine Creat Clearance w eGFR POC Glucometer 113 Random Glucose Calcium Total Bilirubin AST ALT Alkaline Phosphatase Total Protein Albumin Urine Color Yellow Urine Appearance Clear Urine pH 6.5 Ur Specific [place] 1.012 Urine Protein Negative Urine Glucose (UA) Negative Urine Ketones Negative Urine Blood Negative Urine Nitrite Negative Urine Bilirubin Negative Urine Urobilinogen 0.2 Ur Leukocyte Esterase Negative RPR Titer H. pylori IgG Antibody H. pylori IgA Antibody Vital Signs 04/02/19 10:00 Pulse Rate 67 Blood Pressure 118/72 HEENT: NORMOCEPHALIC ANTHONY;EOMI EARS:TM WNL;LARGE AMOUNT OF CERUMEN IN RIGHT EAR CANAL; MINIMAL CERUMEN IN LEFT EAR CANAL. Assessment: 04/02/19 15:27 CERUMEN, LEFT EAR. Plan: DEBROX EAR DROPS APPLY BID X 4 DAYS
[2019-04-02] MEDS: MELATONIN 5 MG TABLETS PO PRN (21:09)
[2019-04-02] MEDS: THIAMINE HCL 100 MG TABLET (FP) PO SCH (21:09)
[2019-04-02] MEDS: CARBAMIDE PEROXIDE 6.5% OTIC 15 ML BOTTLE AD SCH (21:10)
[2019-04-03] MEDS: IBUPROFEN 400 MG TABLET (FP) PO PRN (03:30)
[2019-04-03] MEDS: BACLOFEN 10 MG TABLET (FP) PO SCH ×3 (06:14→21:09)
[2019-04-03] MEDS: GABAPENTIN 100 MG CAPSULE (FP) PO SCH ×3 (06:14→21:09)
[2019-04-03] MEDS: PRENATAL VITAMINS W/ FOLIC ACID TABLET (FP) PO SCH (09:49)
[2019-04-03] MEDS: RANITIDINE HCL 150 MG TABLET (FP) PO SCH ×2 (09:49→21:09)
[2019-04-03] MEDS: CARBAMIDE PEROXIDE 6.5% OTIC 15 ML BOTTLE AD SCH ×2 (09:49→21:11)
[2019-04-03] MEDS: amLODIPine BESYLATE 5 MG TABLET (FP) PO SCH (09:49)
[2019-04-03] MEDS: DOLUTEGRAVIR SODIUM 50 MG TABLET (NON-FORMULARY) PO SCH (09:50)
[2019-04-03] MEDS: BACITRACIN 15 GM TUBE TOPICAL OINTMENT TP SCH ×2 (09:50→21:11)
[2019-04-03] MEDS: EMTRICITABINE/TENOFOV ALAFENAM (DESCOVY) TABLET PO SCH (09:50)
[2019-04-03] MEDS: SODIUM CHLORIDE NASAL SPRAY 44 ML BOTTLE NS PRN (14:58)
[2019-04-03] MEDS: THIAMINE HCL 100 MG TABLET (FP) PO SCH (21:09)
[2019-04-03] MEDS: MELATONIN 5 MG TABLETS PO PRN (21:10)
[2019-04-04] MEDS: IBUPROFEN 400 MG TABLET (FP) PO PRN (05:41)
[2019-04-04] MEDS: BACLOFEN 10 MG TABLET (FP) PO SCH ×3 (05:41→21:14)
[2019-04-04] MEDS: GABAPENTIN 100 MG CAPSULE (FP) PO SCH ×3 (05:41→21:14)
[2019-04-04] MEDS: EMTRICITABINE/TENOFOV ALAFENAM (DESCOVY) TABLET PO SCH (09:59)
[2019-04-04] MEDS: CARBAMIDE PEROXIDE 6.5% OTIC 15 ML BOTTLE AD SCH ×2 (09:59→21:15)
[2019-04-04] MEDS: PRENATAL VITAMINS W/ FOLIC ACID TABLET (FP) PO SCH (09:59)
[2019-04-04] MEDS: DOLUTEGRAVIR SODIUM 50 MG TABLET (NON-FORMULARY) PO SCH (09:59)
[2019-04-04] MEDS: RANITIDINE HCL 150 MG TABLET (FP) PO SCH ×2 (10:00→21:14)
[2019-04-04] MEDS: amLODIPine BESYLATE 5 MG TABLET (FP) PO SCH (10:00)
[2019-04-04] MEDS: BACITRACIN 15 GM TUBE TOPICAL OINTMENT TP SCH ×2 (10:00→21:15)
--- NOTE | 2019-04-04 13:42 | PN ---
[facility] Progress Note Note: PT REPORTS HIS LEFT EAR FEELS BETTER WITH THE DEBROX TREATMENT. PT IS ALERT O X 3. OOB AMBULATING WITH CANE ASSISTANCE.
[2019-04-04] MEDS: THIAMINE HCL 100 MG TABLET (FP) PO SCH (21:14)
[2019-04-04] MEDS: MELATONIN 5 MG TABLETS PO PRN (21:16)
[2019-04-05] MEDS: IBUPROFEN 400 MG TABLET (FP) PO PRN ×2 (03:27→21:09)
[2019-04-05] MEDS: GABAPENTIN 100 MG CAPSULE (FP) PO SCH ×3 (06:05→21:08)
[2019-04-05] MEDS: BACLOFEN 10 MG TABLET (FP) PO SCH ×3 (06:05→21:08)
[2019-04-05] MEDS: RANITIDINE HCL 150 MG TABLET (FP) PO SCH ×2 (10:02→21:08)
[2019-04-05] MEDS: PRENATAL VITAMINS W/ FOLIC ACID TABLET (FP) PO SCH (10:02)
[2019-04-05] MEDS: DOLUTEGRAVIR SODIUM 50 MG TABLET (NON-FORMULARY) PO SCH (10:02)
[2019-04-05] MEDS: amLODIPine BESYLATE 5 MG TABLET (FP) PO SCH (10:02)
[2019-04-05] MEDS: BACITRACIN 15 GM TUBE TOPICAL OINTMENT TP SCH ×2 (10:02→21:10)
[2019-04-05] MEDS: EMTRICITABINE/TENOFOV ALAFENAM (DESCOVY) TABLET PO SCH (10:02)
[2019-04-05] MEDS: CARBAMIDE PEROXIDE 6.5% OTIC 15 ML BOTTLE AD SCH ×2 (10:03→21:10)
[2019-04-05] MEDS: MELATONIN 5 MG TABLETS PO PRN (21:08)
[2019-04-05] MEDS: THIAMINE HCL 100 MG TABLET (FP) PO SCH (21:08)
[2019-04-06] MEDS: GABAPENTIN 100 MG CAPSULE (FP) PO SCH ×3 (05:23→21:08)
[2019-04-06] MEDS: BACLOFEN 10 MG TABLET (FP) PO SCH ×3 (05:23→21:08)
[2019-04-06] MEDS: PRENATAL VITAMINS W/ FOLIC ACID TABLET (FP) PO SCH (09:48)
[2019-04-06] MEDS: DOLUTEGRAVIR SODIUM 50 MG TABLET (NON-FORMULARY) PO SCH (09:48)
[2019-04-06] MEDS: amLODIPine BESYLATE 5 MG TABLET (FP) PO SCH (09:48)
[2019-04-06] MEDS: RANITIDINE HCL 150 MG TABLET (FP) PO SCH ×2 (09:48→21:08)
[2019-04-06] MEDS: EMTRICITABINE/TENOFOV ALAFENAM (DESCOVY) TABLET PO SCH (09:49)
[2019-04-06] MEDS: CARBAMIDE PEROXIDE 6.5% OTIC 15 ML BOTTLE AD SCH ×2 (09:49→21:08)
[2019-04-06] MEDS: BACITRACIN 15 GM TUBE TOPICAL OINTMENT TP SCH ×2 (09:49→21:08)
[2019-04-06] MEDS: MELATONIN 5 MG TABLETS PO PRN (21:08)
[2019-04-06] MEDS: THIAMINE HCL 100 MG TABLET (FP) PO SCH (21:08)
[2019-04-07] MEDS: BACLOFEN 10 MG TABLET (FP) PO SCH ×3 (06:17→21:12)
[2019-04-07] MEDS: GABAPENTIN 100 MG CAPSULE (FP) PO SCH ×3 (06:17→21:12)
[2019-04-07] MEDS: RANITIDINE HCL 150 MG TABLET (FP) PO SCH ×2 (09:48→21:12)
[2019-04-07] MEDS: PRENATAL VITAMINS W/ FOLIC ACID TABLET (FP) PO SCH (09:48)
[2019-04-07] MEDS: amLODIPine BESYLATE 5 MG TABLET (FP) PO SCH (09:48)
[2019-04-07] MEDS: EMTRICITABINE/TENOFOV ALAFENAM (DESCOVY) TABLET PO SCH (09:49)
[2019-04-07] MEDS: DOLUTEGRAVIR SODIUM 50 MG TABLET (NON-FORMULARY) PO SCH (09:49)
[2019-04-07] MEDS: BACITRACIN 15 GM TUBE TOPICAL OINTMENT TP SCH ×2 (09:50→21:13)
[2019-04-07] MEDS: CARBAMIDE PEROXIDE 6.5% OTIC 15 ML BOTTLE AD SCH ×2 (09:50→21:13)
[2019-04-07] MEDS: MELATONIN 5 MG TABLETS PO PRN (21:12)
[2019-04-07] MEDS: THIAMINE HCL 100 MG TABLET (FP) PO SCH (21:13)
[2019-04-08] MEDS: IBUPROFEN 400 MG TABLET (FP) PO PRN (05:06)
[2019-04-08] MEDS: GABAPENTIN 100 MG CAPSULE (FP) PO SCH ×3 (05:53→21:08)
[2019-04-08] MEDS: BACLOFEN 10 MG TABLET (FP) PO SCH ×3 (05:53→21:08)
[2019-04-08] MEDS: amLODIPine BESYLATE 5 MG TABLET (FP) PO SCH (10:08)
[2019-04-08] MEDS: PRENATAL VITAMINS W/ FOLIC ACID TABLET (FP) PO SCH (10:08)
[2019-04-08] MEDS: RANITIDINE HCL 150 MG TABLET (FP) PO SCH ×2 (10:08→21:08)
[2019-04-08] MEDS: CARBAMIDE PEROXIDE 6.5% OTIC 15 ML BOTTLE AD SCH ×2 (10:09→21:09)
[2019-04-08] MEDS: BACITRACIN 15 GM TUBE TOPICAL OINTMENT TP SCH ×2 (10:09→21:09)
[2019-04-08] MEDS: DOLUTEGRAVIR SODIUM 50 MG TABLET (NON-FORMULARY) PO SCH (10:09)
[2019-04-08] MEDS: EMTRICITABINE/TENOFOV ALAFENAM (DESCOVY) TABLET PO SCH (10:10)
[2019-04-08] MEDS: THIAMINE HCL 100 MG TABLET (FP) PO SCH (21:08)
[2019-04-08] MEDS: MELATONIN 5 MG TABLETS PO PRN (21:09)
[2019-04-09] MEDS: GABAPENTIN 100 MG CAPSULE (FP) PO SCH ×3 (06:16→21:08)
[2019-04-09] MEDS: BACLOFEN 10 MG TABLET (FP) PO SCH ×3 (06:16→21:08)
[2019-04-09] MEDS: DOLUTEGRAVIR SODIUM 50 MG TABLET (NON-FORMULARY) PO SCH (09:40)
[2019-04-09] MEDS: amLODIPine BESYLATE 5 MG TABLET (FP) PO SCH (09:40)
[2019-04-09] MEDS: RANITIDINE HCL 150 MG TABLET (FP) PO SCH ×2 (09:40→21:08)
[2019-04-09] MEDS: EMTRICITABINE/TENOFOV ALAFENAM (DESCOVY) TABLET PO SCH (09:40)
[2019-04-09] MEDS: PRENATAL VITAMINS W/ FOLIC ACID TABLET (FP) PO SCH (09:40)
[2019-04-09] MEDS: BACITRACIN 15 GM TUBE TOPICAL OINTMENT TP SCH ×2 (09:41→21:09)
[2019-04-09] MEDS: CARBAMIDE PEROXIDE 6.5% OTIC 15 ML BOTTLE AD SCH ×2 (09:41→21:08)
[2019-04-09] MEDS: THIAMINE HCL 100 MG TABLET (FP) PO SCH (21:08)
[2019-04-09] MEDS: MELATONIN 5 MG TABLETS PO PRN (21:09)
[2019-04-10] MEDS: BACLOFEN 10 MG TABLET (FP) PO SCH ×3 (06:02→21:05)
[2019-04-10] MEDS: GABAPENTIN 100 MG CAPSULE (FP) PO SCH ×3 (06:02→21:05)
[2019-04-10] MEDS: DOLUTEGRAVIR SODIUM 50 MG TABLET (NON-FORMULARY) PO SCH (10:06)
[2019-04-10] MEDS: RANITIDINE HCL 150 MG TABLET (FP) PO SCH ×2 (10:06→21:05)
[2019-04-10] MEDS: amLODIPine BESYLATE 5 MG TABLET (FP) PO SCH (10:06)
[2019-04-10] MEDS: PRENATAL VITAMINS W/ FOLIC ACID TABLET (FP) PO SCH (10:06)
[2019-04-10] MEDS: EMTRICITABINE/TENOFOV ALAFENAM (DESCOVY) TABLET PO SCH (10:06)
[2019-04-10] MEDS: CARBAMIDE PEROXIDE 6.5% OTIC 15 ML BOTTLE AD SCH ×2 (10:07→21:06)
[2019-04-10] MEDS: BACITRACIN 15 GM TUBE TOPICAL OINTMENT TP SCH ×2 (10:07→21:06)
[2019-04-10] MEDS: THIAMINE HCL 100 MG TABLET (FP) PO SCH (21:05)
[2019-04-10] MEDS: MELATONIN 5 MG TABLETS PO PRN (21:05)
[2019-04-11] MEDS: GABAPENTIN 100 MG CAPSULE (FP) PO SCH (05:46)
[2019-04-11] MEDS: BACLOFEN 10 MG TABLET (FP) PO SCH (05:47)
[2019-04-11 06:25] VITALS: BP 122/71; PULSE 64; TEMP 97.8
[2019-04-11] MEDS: RANITIDINE HCL 150 MG TABLET (FP) PO SCH (09:29)
[2019-04-11] MEDS: amLODIPine BESYLATE 5 MG TABLET (FP) PO SCH (09:29)
[2019-04-11] MEDS: PRENATAL VITAMINS W/ FOLIC ACID TABLET (FP) PO SCH (09:29)
[2019-04-11] MEDS: DOLUTEGRAVIR SODIUM 50 MG TABLET (NON-FORMULARY) PO SCH (09:30)
[2019-04-11] MEDS: EMTRICITABINE/TENOFOV ALAFENAM (DESCOVY) TABLET PO SCH (09:30)
[2019-04-11] MEDS: BACITRACIN 15 GM TUBE TOPICAL OINTMENT TP SCH (09:32)
[2019-04-11] MEDS: CARBAMIDE PEROXIDE 6.5% OTIC 15 ML BOTTLE AD SCH (09:32)
--- NOTE | 2019-04-11 09:35 | PN ---
[facility] Progress Note (SOAP) Subjective: PT COMPLETED REHAB AND DISCHARGING TODAY. PT SAW HIS COUNSELOR AND WAS REFERRED TO [facility] FOR [facility] [address] [place] [place] PT HAS AN APPOINTMENT TO FOLLOW UP AT [facility] WITH HIS PCP DR. NIR GONZALEZ ON 04/12/19 AT 12:00 PM FOR MEDICAL MANAGEMENT. PH: . PT IS ALERT O X 3. DENIES S/H/I. Objective: 04/11/19 09:52 Vital Signs 04/11/19 04/11/19 03:30 06:25 Temperature 97.8 F Pulse Rate 64 Respiratory 18 16 Rate Blood Pressure 122/71 Laboratory Tests 03/19/19 03/19/19 03/19/19 07:30 07:30 07:30 WBC 4.8 RBC 4.72 Hgb 12.7 Hct 39.9 MCV 84.5 MCH 26.8 MCHC 31.7 L RDW 15.8 Plt Count 228 MPV 8.9 Sodium 138 Potassium 4.6 Chloride 102 Carbon Dioxide 32 Anion Gap 5 L BUN 17 Creatinine 0.9 Creat Clearance w eGFR 83.18 POC Glucometer Random Glucose 91 Calcium 9.0 Total Bilirubin 0.5 AST 28 ALT 20 Alkaline Phosphatase 105 Total Protein 7.5 Albumin 3.3 L Urine Color Urine Appearance Urine pH Ur Specific [place] Urine Protein Urine Glucose (UA) Urine Ketones Urine Blood Urine Nitrite Urine Bilirubin Urine Urobilinogen Ur Leukocyte Esterase RPR Titer Nonreactive H. pylori IgG Antibody H. pylori IgA Antibody 03/24/19 03/26/19 03/28/19 07:40 11:48 06:45 WBC RBC Hgb Hct MCV MCH MCHC RDW Plt Count MPV Sodium Potassium Chloride Carbon Dioxide Anion Gap BUN Creatinine Creat Clearance w eGFR POC Glucometer 102 90 Random Glucose Calcium Total Bilirubin AST ALT Alkaline Phosphatase Total Protein Albumin Urine Color Urine Appearance Urine pH Ur Specific [place] Urine Protein Urine Glucose (UA) Urine Ketones Urine Blood Urine Nitrite Urine Bilirubin Urine Urobilinogen Ur Leukocyte Esterase RPR Titer H. pylori IgG Antibody 1.17 H H. pylori IgA Antibody <9.0 03/29/19 04/02/19 04/02/19 06:39 07:25 12:00 WBC 6.9 RBC 4.71 Hgb 12.6 Hct 40.0 MCV 85.0 MCH 26.8 MCHC 31.5 L RDW 16.4 H Plt Count 230 MPV 8.7 Sodium Potassium Chloride Carbon Dioxide Anion Gap BUN Creatinine Creat Clearance w eGFR POC Glucometer 113 Random Glucose Calcium Total Bilirubin AST ALT Alkaline Phosphatase Total Protein Albumin Urine Color Yellow Urine Appearance Clear Urine pH 6.5 Ur Specific [place] 1.012 Urine Protein Negative Urine Glucose (UA) Negative Urine Ketones Negative Urine Blood Negative Urine Nitrite Negative Urine Bilirubin Negative Urine Urobilinogen 0.2 Ur Leukocyte Esterase Negative RPR Titer H. pylori IgG Antibody H. pylori IgA Antibody 04/08/19 05:52 WBC RBC Hgb Hct MCV MCH MCHC RDW Plt Count MPV Sodium Potassium Chloride Carbon Dioxide Anion Gap BUN Creatinine Creat Clearance w eGFR POC Glucometer 100 Random Glucose Calcium Total Bilirubin AST ALT Alkaline Phosphatase Total Protein Albumin Urine Color Urine Appearance Urine pH Ur Specific [place] Urine Protein Urine Glucose (UA) Urine Ketones Urine Blood Urine Nitrite Urine Bilirubin Urine Urobilinogen Ur Leukocyte Esterase RPR Titer H. pylori IgG Antibody H. pylori IgA Antibody PT HAS BEEN GIVEN A COPY OF ALL HIS LAB RESULTS AND ER VISIT PAPERS AND INSTRUCTED TO TAKE TO HIS MEDICAL PROVIDER TOMORROW WHEN HE GOES TO HIS APPOINTMENT AT [facility]. Assessment: 04/11/19 09:52 NAD MEDICALLY STABLE Plan: D/C PT TODAY D/W PT TO FOLLOW UP WITH CD AFTERCARE RECOMMENDATION. FOLLOW UP WITH YOUR DR NIR GONZALEZ ON 04/12/19 AT 12 PM SCHEDULED.
== END 2019-04-11 10:06 | disposition home or self-care (01) | DRG 895 ==
LOC: YASAS 16:29 → Y6N 23:14 → UNDODISIN 03-24 11:25 → Y5N 03-24 13:27
PROVIDERS: ADMIT Surgery; ATTEND Surgery
PROC: HZ2ZZZZ Detoxification Services for Substance Abuse Treatment (ICD-10-PCS; principal; 2019-03-18)
PROC: HZ42ZZZ Group Counseling for Substance Abuse Treatment, Cognitive-Behavioral (ICD-10-PCS; 2019-03-24)
DX: F11.23 Opioid dependence with withdrawal (principal); I10 Essential (primary) hypertension; Z21 Asymptomatic human immunodeficiency virus [HIV] infection status; J45.909 Unspecified asthma, uncomplicated; H61.21 Impacted cerumen, right ear; G62.89 Other specified polyneuropathies; R94.31 Abnormal electrocardiogram [ECG] [EKG]; I45.81 Long QT syndrome; R07.9 Chest pain, unspecified; Z87.891 Personal history of nicotine dependence
CPT/HCPCS: 36415; 71045-TC-FY; 71250-TC; 80053; 81003; 82550; 82962; 83690; 83735; 84484; 85025; 85027; 85610; 86593; 86677; 93005; 93010; 96365; 96375; 99283-25; 99284-25; J0131; J0475; J0735; J7030; Q0162

== ENCOUNTER 2019-03-21 22:31 | Emergency (ER) | payer OTHER ==
[2019-03-21 23:46] VITALS: TEMP 98.5; BMI 18.6
[2019-03-21] MEDS ORDERED: ACETAMINOPHEN 1000 MG/100 ML VIAL (NON FORMULARY) IVPB ONE (23:51)
[2019-03-21] MEDS ORDERED: FAMOTIDINE 20 MG/50 ML IVPB 20 MG/50 ML MG IVPB ONE (23:51)
--- NOTE | 2019-03-21 23:57 | PDOC ---
History of Present Illness - General Chief Complaint: Chest Pain Stated Complaint: PAIN Time Seen by Provider: 03/21/19 23:39 History Source: Patient Exam Limitations: No Limitations - History of Present Illness Initial Comments: 03/22/19 00:02 Patient is a 69M with history of HIV (compliant on HAART therapy), HTN, asthma, cocaine and heroin abuse here today with chest pain. He states that it started in the past "few" days. Endorses nausea and general malaise. Last use of cocaine and heroin 2 days. Endorses associated shortness of breath. Pain is described as sharp. No change in breathing. Patient denies prior cardiac history. Denies history of blood clots, leg swelling, recent travel. Denies fevers, chills, cough. Past History - Past Medical History Allergies/Adverse Reactions: Allergies Allergy/AdvReac Type Severity Reaction Status Date / Time No Known Allergies Allergy Verified 03/18/19 21:08 Home Medications: Ambulatory Orders Emtricitabine/Tenofovir [Truvada -] 1 each PO DAILY 03/18/19 Anemia: No Asthma: Yes (Albuterol) Cancer: No Cardiac Disorders: No CVA: No COPD: No CHF: No Dementia: No Diabetes: No GI Disorders: No Disorders: No HTN: Yes Hypercholesterolemia: Yes Kidney Stones: No Liver Disease: No Seizures: No - Surgical History Abdominal Surgery: No Appendectomy: No Cardiac Surgery: No Cholecystectomy: Yes Lung Surgery: No Neurologic Surgery: No Orthopedic Surgery: Yes - Reproductive History Testicular Surgery: No - Suicide/Smoking/Psychosocial Hx Smoking History: Former smoker Have you smoked in the past 12 months: No Information on smoking cessation initiated: No 'Breaking Loose' booklet given: 03/18/19 Hx Alcohol Use: No Drug/Substance Use Hx: Yes (cocaine, heroin, methadone) Substance Use Type: Cocaine, Heroin Hx Substance Use Treatment: Yes ([facility];) Review of Systems - Review of Systems Able to Perform ROS?: Yes Comments:: 03/22/19 00:13 GENERAL/CONSTITUTIONAL: No fever or chills. No weakness. HEAD, EYES, EARS, NOSE AND THROAT: No change in vision. No sore throat. CARDIOVASCULAR:+chest pain +shortness of breath RESPIRATORY: No cough, wheezing, or hemoptysis. GASTROINTESTINAL: +nausea, no vomiting, diarrhea or constipation. GENITOURINARY: No dysuria, frequency, or change in urination. MUSCULOSKELETAL: No joint or muscle swelling or pain. No neck or back pain. SKIN: No rash NEUROLOGIC: No headache, vertigo, loss of consciousness, or change in strength/ sensation. ENDOCRINE: No increased thirst. No abnormal weight change HEMATOLOGIC/LYMPHATIC: No anemia, easy bleeding, or history of blood clots. ALLERGIC/IMMUNOLOGIC: No hives or skin allergy. *Physical Exam - Vital Signs Last Vital Signs Temp Pulse Resp BP Pulse Ox 98.5 F 67 16 122/74 99 03/21/19 23:42 03/21/19 23:47 03/21/19 23:42 03/21/19 23:42 03/21/19 23:47 - Physical Exam Comments: 03/22/19 00:14 GENERAL: Awake, alert, and fully oriented, in no acute distress HEAD: No signs of trauma, normocephalic, atraumatic EYES: PERRLA, EOMI, sclera anicteric, conjunctiva clear ENT: Auricles normal inspection, hearing grossly normal, nares patent, oropharynx clear without exudates. Moist mucosa NECK: Normal ROM, supple, no lymphadenopathy, JVD, or masses LUNGS: No distress, speaks full sentences, clear to auscultation bilaterally HEART: Regular rate and rhythm, normal S1 and S2, no murmurs, rubs or gallops, peripheral pulses normal and equal bilaterally. ABDOMEN: Soft, nontender, normoactive bowel sounds. No guarding, no rebound. No masses EXTREMITIES: Normal inspection, Normal range of motion, no edema. No clubbing or cyanosis. NEUROLOGICAL: Cranial nerves II through XII grossly intact. Normal speech, no focal sensorimotor deficits SKIN: Warm, Dry, normal turgor, no rashes or lesions noted. Heart Score/ECG Review - History History: Slightly suspicious - Electrocardiogram EKG: Normal - Age Age: >/= 65 - Risk Factors Risk Factors Heart Score: Yes Hx Hypertension Based on the list above the patient has:: 1-2 risk factors - Troponin Troponin: </= normal limit - Score Heart Score - Total: 3 ED Treatment Course - LABORATORY CBC & Chemistry Diagram: 03/22/19 00:30 03/22/19 00:30 - RADIOLOGY Radiology Studies Ordered: Category Date Time Status CHEST X-RAY PORTABLE* [RAD] Stat Radiology 03/21/19 23:50 Ordered Medical Decision Making - Medical Decision Making 03/22/19 00:14 Patient is 69M with history of HTN, asthma, heroin and cocaine abuse. Vitals normal and stable. DDx includes, but is not limited to: acs, arrhythmia, pneumonia, pneumothorax. Will evaluate with cbc, cmp, trop, ekg, cxr, pt/inr. Likely obs. 03/22/19 01:03 EKG shows sinus bradycardia with rate of 54. No st elevations/depressions. Normal axis. Normal intervals. No significant t wave abnormalities. 03/22/19 01:36 CBC normal PT/inr normal Trop 0.05, will do second trop at 3am. If normal, dc to [facility]. If abnormal, admit. Signed out to Dr Beaver. *DC/Admit/Observation/Transfer Diagnosis at time of Disposition: Chest pain - Discharge Dispostion Condition at time of disposition: Stable - Referrals - Patient Instructions - Post Discharge Activity
[2019-03-22] MEDS ORDERED: ACETAMINOPHEN INJECTION 100 ML IVPB ONE (00:31)
[2019-03-22] MEDS ORDERED: FAMOTIDINE 20 MG/50 ML IVPB 20 MG/50 ML MG IVPB ONE (00:31)
[2019-03-22 00:52] LABS: BASO % 0.3 % (0-2.0); EOS % 1.6 % (0-4.5); HEMATOCRIT 42.9 % (35.4-49); HEMOGLOBIN 13.4 GM/dL (11.7-16.9); LYMPH % 18.7 % (8-40); MCH 26.8 pg (25.7-33.7); MCHC 31.3 g/dl (32.0-35.9); MEAN CELL VOLUME 85.5 fl (80-96); MEAN PLT VOLUME 8.6 fl (7.5-11.1); MONO % 8.8 % (3.8-10.2); NEUT % 70.6 % (42.8-82.8); PLATELET COUNT 244 K/MM3 (134-434); RBC 5.01 M/mm3 (4.00-5.60); RDW 16.2 % (11.9-15.9); WHITE BLOOD COUNT 7.7 K/mm3 (4.0-10.0)
--- NOTE | 2019-03-22 01:02 | PDOC ---
Documentation entered by Suzanne Roche SCRIBE, acting as scribe for Lydia Alfredo MD. Lydia Alfredo MD: This documentation has been prepared by the Kaley de la cruz Adrianna, SCRIBE, under my direction and personally reviewed by me in its entirety. I confirm that the documentation accurately reflects all work, treatment, procedures, and medical decision making performed by me. Attending Attestation - Resident Resident Name: Jones Pretty - [facility] HPI: The patient is a 69 year old male, with a significant PMH of HIV (compliant on HAART therapy), hypertension, hyperlipidemia, asthma, and substance abuse ( cocaine, heroin, methadone), who presents to the emergency department today from [facility] (detoxing) complaining of chest pain for 2 days. Patient notes the pain is mostly left-sided, is constant, and is exacerbated with deep inspiration. He endorses associated dyspnea, nausea, and general malaise. Patient admits to using cocaine and heroin 2 days ago. Denies history of similar symptoms. The patient denies headache and dizziness. Denies fever, chills, nausea, vomit, diarrhea and constipation. Denies dysuria, frequency, urgency and hematuria. Denies recent travel, leg swelling, or history of DVT. Allergies: NKA Past surgical history: Cholecystectomy, orthopedic surgery Social history: substance abuse (cocaine, heroin, methadone), last use wa 2 days ago PCP: None ([facility]) 03/22/19 00:40 - Physicial Exam PE: GENERAL: +Cachectic. Awake, alert, and fully oriented, in no acute distress HEAD: No signs of trauma EYES: PERRLA, EOMI, sclera anicteric, conjunctiva clear ENT: Auricles normal inspection, hearing grossly normal, nares patent, oropharynx clear without exudates. Moist mucosa NECK: Normal ROM, supple, no lymphadenopathy, JVD, or masses LUNGS: Breath sounds equal, clear to auscultation bilaterally. No wheezes, and no crackles HEART: +Left-sided chest wall tenderness. Regular rate and rhythm, normal S1 and S2, no murmurs, rubs or gallops ABDOMEN: +DIffusely tender to deep palpation. Soft, normoactive bowel sounds. No guarding, no rebound. No masses EXTREMITIES: Normal range of motion, no edema. No clubbing or cyanosis. No cords, erythema, or tenderness NEUROLOGICAL: Cranial nerves II through XII grossly intact. Normal speech, normal gait SKIN: Warm, Dry, normal turgor, no rashes or lesions noted. 03/22/19 00:40 - Medical Decision Making 03/22/19 00:58 Pt presents to the ED complaining of a two day history of constant R sided chest wall pain. Last cocaine use was two days ago. EKG shows no ischemia. Differential includes muscular chest pain, less likely ACS, unlikely aortic dissection. will check labs and cardiac enzymes and reassess. May consider discharge home if cardiac enzymes are negative and pain improves with IV tylenol. 03/22/19 01:06 03/22/19 01:06
[2019-03-22 01:06] LABS: INR 0.94 (0.83-1.09); PROTHROMBIN TIME (PATIENT) 11.1 SEC (9.7-13.0)
[2019-03-22] MEDS ORDERED: ASPIRIN 81 MG CHEWABLE TABLETS PO ONE (01:07)
[2019-03-22 01:21] LABS: CREATININE 0.9 mg/dL (0.55-1.3); POTASSIUM 4.6 mmol/L (3.5-5.1)
[2019-03-22 01:22] LABS: ALBUMIN 3.1 g/dl (3.4-5.0); BILIRUBIN,TOTAL 0.2 mg/dL (0.2-1); CALCIUM 8.9 mg/dL (8.5-10.1); MAGNESIUM 2.6 mg/dL (1.8-2.4); TOT PROT 7.2 g/dl (6.4-8.2)
--- NOTE | 2019-03-22 01:32 | PDOC ---
*Physical Exam - Vital Signs Last Vital Signs Temp Pulse Resp BP Pulse Ox 98.5 F 67 16 122/74 99 03/21/19 23:42 03/21/19 23:47 03/21/19 23:42 03/21/19 23:42 03/21/19 23:47 ED Treatment Course - LABORATORY CBC & Chemistry Diagram: 03/22/19 00:30 03/22/19 00:30 - ADDITIONAL ORDERS Additional order review: Laboratory Results 03/22/19 03/22/19 00:30 00:30 PT with INR 11.10 INR 0.94 Sodium 139 Potassium 4.6 Chloride 105 Carbon Dioxide 30 Anion Gap 4 L BUN 18 Creatinine 0.9 Est GFR (CKD-EPI)AfAm 99.24 Est GFR (CKD-EPI)NonAf 85.63 Random Glucose 91 Calcium 8.9 Magnesium 2.6 H Total Bilirubin 0.2 AST 31 ALT 21 Alkaline Phosphatase 106 Creatine Kinase 38 Troponin I 0.05 Total Protein 7.2 Albumin 3.1 L Lipase 84 03/22/19 00:30 RBC 5.01 MCV 85.5 MCHC 31.3 L RDW 16.2 H MPV 8.6 Neutrophils % 70.6 Lymphocytes % 18.7 Monocytes % 8.8 Eosinophils % 1.6 Basophils % 0.3 - Medications Given in the ED: ED Medications Discontinued Medications Generic Name Dose Route Start Last Admin Trade Name Steph PRN Reason Stop Dose Admin Acetaminophen 1,000 mg 03/21/19 23:51 03/22/19 00:46 Ofirmev Injection - IVPB 03/21/19 23:52 1,000 mg ONCE ONE Administration Famotidine/Sodium Chloride 20 mg in 50 mls @ 100 mls/hr 03/21/19 23:51 00:47 Pepcid 20 Mg Premixed Ivpb - IVPB 03/22/19 00:20 100 mls/hr ONCE ONE Administration Medical Decision Making - Medical Decision Making 03/22/19 01:30 69 year old male with PMH HTN, cocaine abuse, heroine abuse presented to ED from [facility] for chest pain. Initial Vital Signs Temp Pulse Resp BP Pulse Ox 98.5 F 67 16 122/74 98 03/21/19 23:42 03/21/19 23:42 03/21/19 23:42 03/21/19 23:42 03/21/19 23:42 Afebrile. No tachycardia. No tachypnea. Normal blood pressure. No hypoxia on room air. EKG performed at 0042: rate 54, regular rhythm, normal axis, normal intervals, no acute ST changes. CBC WBC 7.7 K/mm3 (4.0-10.0) 03/22/19 00:30 RBC 5.01 M/mm3 (4.00-5.60) 03/22/19 00:30 Hgb 13.4 GM/dL (11.7-16.9) 03/22/19 00:30 Hct 42.9 % (35.4-49) 03/22/19 00:30 MCV 85.5 fl (80-96) 03/22/19 00:30 MCH 26.8 pg (25.7-33.7) 03/22/19 00:30 MCHC 31.3 g/dl (32.0-35.9) L 03/22/19 00:30 RDW 16.2 % (11.9-15.9) H 03/22/19 00:30 Plt Count 244 K/MM3 (134-434) 03/22/19 00:30 MPV 8.6 fl (7.5-11.1) 03/22/19 00:30 Absolute Neuts (auto) 5.4 K/mm3 (1.5-8.0) 03/22/19 00:30 Neutrophils % 70.6 % (42.8-82.8) 03/22/19 00:30 Lymphocytes % 18.7 % (8-40) 03/22/19 00:30 Monocytes % 8.8 % (3.8-10.2) 03/22/19 00:30 Eosinophils % 1.6 % (0-4.5) 03/22/19 00:30 Basophils % 0.3 % (0-2.0) 03/22/19 00:30 Nucleated RBC % 0 % (0-0) 03/22/19 00:30 No leukocytosis. No anemia. CMP Sodium 139 mmol/L (136-145) 03/22/19 00:30 Potassium 4.6 mmol/L (3.5-5.1) 03/22/19 00:30 Chloride 105 mmol/L (98-107) 03/22/19 00:30 Carbon Dioxide 30 mmol/L (21-32) 03/22/19 00:30 Anion Gap 4 MMOL/L (8-16) L 03/22/19 00:30 BUN 18 mg/dL (7-18) 03/22/19 00:30 Creatinine 0.9 mg/dL (0.55-1.3) 03/22/19 00:30 Est GFR (CKD-EPI)AfAm 99.24 03/22/19 00:30 Est GFR (CKD-EPI)NonAf 85.63 03/22/19 00:30 Random Glucose 91 mg/dL (74-106) 03/22/19 00:30 Calcium 8.9 mg/dL (8.5-10.1) 03/22/19 00:30 Magnesium 2.6 mg/dL (1.8-2.4) H 03/22/19 00:30 Total Bilirubin 0.2 mg/dL (0.2-1) 03/22/19 00:30 AST 31 U/L (15-37) 03/22/19 00:30 ALT 21 U/L (13-61) 03/22/19 00:30 Alkaline Phosphatase 106 U/L (45-117) 03/22/19 00:30 Creatine Kinase 38 U/L (26-308) 03/22/19 00:30 Troponin I 0.05 ng/ml (0.00-0.05) 03/22/19 00:30 Total Protein 7.2 g/dl (6.4-8.2) 03/22/19 00:30 Albumin 3.1 g/dl (3.4-5.0) L 03/22/19 00:30 Lipase 84 U/L (73-393) 03/22/19 00:30 No clinically significant electrolyte abnormalities. No KAILEY. Troponin borderline -Pending repeat at 0300 Normal lipase Pending CXR, repeat troponin. 03/22/19 03:55 Repeat troponin 0.04. CXR my read: sharp costophrenic angles. no infiltrate. no cardiomegaly. no large pneumothorax. -Pending official read. Pt discharged back to [facility]. I spoke with the admissions doctor at [facility]. I spoke with the patient about his results, and plan for transfer back to [facility], he agrees with plan for care. Pending transfer. 03/24/19 10:48 Follow up: CXR report: left milung markings could indicate atelectasis vs early infiltrate. Call back placed for pt to be informed. *DC/Admit/Observation/Transfer Diagnosis at time of Disposition: Chest pain - Discharge Dispostion Disposition: I.P. ALCOHOL/SUBS ABUSE REHAB Condition at time of disposition: Stable Decision to Admit order: No - Referrals - Patient Instructions - Post Discharge Activity
[2019-03-22] MEDS ORDERED: ASPIRIN 81 MG CHEWABLE TABLETS ONE (02:30)
[2019-03-22 04:35] VITALS: BP 118/76; PULSE 57
--- NOTE | 2019-03-22 11:40 | EKG ---
Test Reason : Blood Pressure : / mmHG Vent. Rate : 054 BPM Atrial Rate : 054 BPM P-R Int : 142 ms QRS Dur : 092 ms QT Int : 432 ms P-R-T Axes : 073 063 074 degrees QTc Int : 409 ms SINUS BRADYCARDIA MINIMAL VOLTAGE CRITERIA FOR LVH, MAY BE NORMAL VARIANT BORDERLINE ECG WHEN COMPARED WITH ECG OF 18-MAR-2019 22:50, NO SIGNIFICANT CHANGE WAS FOUND Confirmed by LONG JOHN, TOSIN ([id number]) on 03/22/2019 11:40:41 AM Referred By: Confirmed By:TOSIN ALVES MD
== END 2019-03-22 05:09 | disposition other institution (70) ==
LOC: JER 22:31
PROC: 3E033GC Introduction of Other Therapeutic Substance into Peripheral Vein, Percutaneous Approach (ICD-10-PCS; principal; 2019-03-21)
PROC: 3E033NZ Introduction of Analgesics, Hypnotics, Sedatives into Peripheral Vein, Percutaneous Approach (ICD-10-PCS; 2019-03-21)
DX: R07.9 Chest pain, unspecified (principal); I10 Essential (primary) hypertension; E78.00 Pure hypercholesterolemia, unspecified; J45.909 Unspecified asthma, uncomplicated; Z21 Asymptomatic human immunodeficiency virus [HIV] infection status; F11.10 Opioid abuse, uncomplicated; F14.10 Cocaine abuse, uncomplicated
CPT/HCPCS: 36415; 71045-TC-FY; 80053; 82550; 83690; 83735; 84484; 85025; 85610; 93005; 93010; 96365; 96375; 99283-25; J0131

== ENCOUNTER 2019-03-26 12:41 | Emergency (ER) | payer OTHER ==
[2019-03-26 13:02] VITALS: BMI 21.9
--- NOTE | 2019-03-26 13:22 | PDOC ---
History of Present Illness - General Chief Complaint: Cold Symptoms Stated Complaint: R/O PNEUMONIA Time Seen by Provider: 03/26/19 13:22 - History of Present Illness Initial Comments: 03/26/19 13:44 Patient is a 69 year old male with history of HIV (on HAART), polysubstance abuse (cocaine, heroine, on methadone), presents from [facility] with complaint of shortness of breath, with chest pain. Chest pain described as sharp substernal pain, that radiates to the epigastrum. He endorses diffuse body pains. Abdominal pain associated with nausea, and bilious non blood vomiting, last episode this morning. Patient endorses shortness of breath, associated with cough productive with yellow sputum. He endorses subjective fevers, chills. Denies sick contacts. Patient endorses symptoms have been ongoing for past two days. Past History - Travel Traveled outside of the country in the last 30 days: No - Past Medical History Allergies/Adverse Reactions: Allergies Allergy/AdvReac Type Severity Reaction Status Date / Time No Known Allergies Allergy Verified 03/18/19 21:08 Home Medications: Ambulatory Orders Acetaminophen [Pain Relief] 650 mg PO PRN PRN 03/26/19 Amlodipine Besylate [Norvasc -] 5 mg PO DAILY 03/26/19 Azithromycin 500 mg PO DAILY 5 Days #5 tablet 03/26/19 Mag Hydrox/Al Hydrox/Simeth [Mylanta *Suspension*] 30 ml PO PRN PRN 03/26/19 Melatonin 5 mg PO HS PRN 03/26/19 Ondansetron [Zofran Odt -] 4 mg SL PRN PRN 03/26/19 P-Ephed 60Mg/Triprolidi 2.5MG [Actifed -] 1 combo PO Q6H PRN 03/26/19 Pnv No.121/Iron/Folic Acid [ Multivitamin Tablet] 1 each PO DAILY Ranitidine [Zantac -] 150 mg PO BID 03/26/19 Sodium Chloride Nasal [place] [[place] Nasal [place]] 2 spray NS TID PRN Thiamine HCl [B-1] 100 mg PO HS 03/26/19 Anemia: No Asthma: Yes (Albuterol) Cancer: No Cardiac Disorders: No CVA: No COPD: No CHF: No Dementia: No Diabetes: No GI Disorders: No Disorders: No HTN: Yes Hypercholesterolemia: Yes Kidney Stones: No Liver Disease: No Seizures: No - Surgical History Abdominal Surgery: No Appendectomy: No Cardiac Surgery: No Cholecystectomy: Yes Lung Surgery: No Neurologic Surgery: No Orthopedic Surgery: Yes - Reproductive History Testicular Surgery: No - Suicide/Smoking/Psychosocial Hx Smoking History: Current every day smoker Have you smoked in the past 12 months: Yes Number of Cigarettes Smoked Daily: 6 Information on smoking cessation initiated: No 'Breaking Loose' booklet given: 03/18/19 Hx Alcohol Use: Yes Drug/Substance Use Hx: Yes Substance Use Type: Cocaine, Heroin Hx Substance Use Treatment: Yes ([facility];) Review of Systems - Review of Systems Able to Perform ROS?: Yes Is the patient limited Bruneian proficient: Yes Constitutional: Yes: Chills, Diaphoresis, Fever, Weakness Respiratory: Yes: Shortness of Breath, Wheezing, Productive cough. No: Hemoptysis Cardiac (ROS): Yes: Chest Pain, Lightheadedness, Chest Tightness ABD/GI: Yes: Abdominal cramping. No: Abdominal Distended, Blood Streaked Bowels , Tarry Stools : No: Burning, Dysuria, Pain *Physical Exam - Vital Signs Last Vital Signs Temp Pulse Resp BP Pulse Ox 98.5 F 83 28 H 140/68 98 03/26/19 13:14 03/26/19 12:58 03/26/19 12:58 03/26/19 12:58 03/26/19 12:58 - Physical Exam General Appearance: Yes: Mild Distress, Thin HEENT: positive: EOMI, REINA, Pharyngeal Erythema. negative: Scleral Icterus (R) , Scleral Icterus (L), Tonsillar Exudate Neck: positive: Trachea midline, Supple. negative: Stridor, Lymphadenopathy (R) , Lymphadenopathy (L) Respiratory/Chest: positive: Labored Respiration, Crackles. negative: Accessory Muscle Use Cardiovascular: positive: Regular Rhythm, Regular Rate, S1, S2. negative: Murmur, Irregular Gastrointestinal/Abdominal: positive: Tender (mild tenderness diffusely), Flat, Soft. negative: Guarding, Rebound Extremity: positive: Normal Range of Motion. 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 Chest pain reproducible upon palpation. Associated with productive cough. No WBC count Troponin 0.02. Will repeat. Lipase negative Questionable infiltrate noted on chest radiograph. Will obtain CT chest CT chest shows bronchiectasis, bronchitis. Numerous pulmonary nodules. Ascending aorta 4cm dilation. Subacute L1 vertebral body fracture. Will repeat Troponin. If negative will discharge back to [facility] with oral antibiotics. Troponin negative X2. Patient endorses that he is feeling better. Tolerated dinner (regular diet) without abdominal pain, nausea, vomiting. Discharge to return to [facility] for continued rehab. Azithromycin 500mg PO daily for 5 days for bronchitis. Patient is in agreement with the plan. All questions, concerns answered and addressed. *DC/Admit/Observation/Transfer Diagnosis at time of Disposition: Bronchitis Bronchiectasis Qualifiers: Bronchiectasis type: uncomplicated Qualified Code(s): J47.9 - Bronchiectasis, uncomplicated - Discharge Dispostion Disposition: DETENTION FACILITY Condition at time of disposition: Stable Decision to Admit order: No - Prescriptions Prescriptions: Azithromycin 500 mg PO DAILY 5 Days #5 tablet - Referrals Referrals: [facility] [place] [Provider Group] - Call tomorrow Abilio Loyola MD [Staff Physician] - Call tomorrow Mario Lundy MD [Staff Physician] - Call tomorrow - Patient Instructions Additional Instructions: You are being discharged back to [facility]. Continue taking your medications as directed. Your CT scan showed bronchitis, and bronchiectasis. You will take antibiotic: Azithromycin 500mg daily for [address] scan showed numerous nodules within your lungs. Follow up with [facility]. A referral to Dr. Loyola has been provided. Your CT scan also showed a dilated aorta. 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 A referral to Dr. Lundy has been provided. Finally, the CT showed a fracture of your lumbar vertebra. Follow up with your primary care physician; and discuss an orthopedic surgeon referral. Follow the recommendations of the physicians at [facility] Return to the nearest Emergency Department if you experience worsening symptoms , subjective fevers, chills, shortness of breath, chest pain, palpitations, abdominal pain, nausea, vomiting. - Post Discharge Activity
[2019-03-26 14:54] LABS: HEMOGLOBIN 14.8 GM/dL (11.7-16.9); MCH 27.1 pg (25.7-33.7); MCHC 32.1 g/dl (32.0-35.9); MEAN CELL VOLUME 84.5 fl (80-96); MEAN PLT VOLUME 8.6 fl (7.5-11.1); PLATELET COUNT 255 K/MM3 (134-434); RBC 5.44 M/mm3 (4.00-5.60); RDW 16.2 % (11.9-15.9); WHITE BLOOD COUNT 7.8 K/mm3 (4.0-10.0)
[2019-03-26] MEDS ORDERED: SODIUM CHLORIDE 0.9% 1000 ML INFUS.BAG IV ONE (14:56)
[2019-03-26] MEDS ORDERED: ONDANSETRON 4 MG/2 ML VIAL IVPUSH ONE (14:56)
[2019-03-26] MEDS ORDERED: ACETAMINOPHEN 1000 MG/100 ML VIAL (NON FORMULARY) IVPB ONE (14:56)
[2019-03-26] MEDS ORDERED: ALBUTEROL SO4 2.5/IPRATROPIUM 0.5 INH SOL 3 ML VIAL.NEB. NEB ONE (14:56)
--- NOTE | 2019-03-26 14:59 | PDOC ---
Documentation entered by Della Arguello SCRIBE, acting as scribe for Kenia Mcgowan DO. Kenia Mcgowan DO: This documentation has been prepared by the mashaibe, Della Arguello SCRIBE, under my direction and personally reviewed by me in its entirety. I confirm that the documentation accurately reflects all work, treatment, procedures, and medical decision making performed by me. Attending Attestation - Resident Resident Name: Diony Veras - ED Attending Attestation I have performed the following: I have examined & evaluated the patient, The case was reviewed & discussed with the resident, I agree w/resident's findings & plan, Exceptions are as noted - HPI HPI: 03/26/19 13:44 69-year-old male, with a past medical history of asthma, HTN, HLD, HIV (on HAART ), polysubstance abuse (cocaine, heroin -on methadone), who was sent to the ED from [facility] with 2 days of chest pain and shortness of breath. The patient describes the pain as sharp in sensation, located to the substernal region, with radiation to the epigastric area, and with associated nausea, vomiting, body aches, and cough productive of yellow sputum. The patient denies any fevers, chills, diarrhea, or constipation. Denies any weakness, lightheadedness, or changes in sensation. Allergies: NKA Social History: Cocaine and Heroin abuse. Surgical History: Cholecystectomy, orthopedic surgery. - Physicial Exam PE: 03/26/19 14:35 GENERAL: Awake, alert, and fully oriented, in no acute distress HEAD: No signs of trauma EYES: PERRLA, EOMI, sclera anicteric, conjunctiva clear ENT: Auricles normal inspection, hearing grossly normal, nares patent, oropharynx clear without exudates. Moist mucosa NECK: Normal ROM, supple, no lymphadenopathy, JVD, or masses LUNGS: (+)Diminished at the bases. HEART: Regular rate and rhythm, normal S1 and S2, no murmurs, rubs or gallops ABDOMEN: (+)Epigastric tenderness. Soft, normoactive bowel sounds. No guarding , no rebound. No masses MSK: No chest wall tenderness. EXTREMITIES: Normal range of motion, no edema. No clubbing or cyanosis. No cords, erythema, or tenderness NEUROLOGICAL: Cranial nerves II through XII grossly intact. Normal speech, normal gait SKIN: Warm, Dry, normal turgor, no rashes or lesions noted - Medical Decision Making 03/26/19 14:58 I, Dr. Kenia Mcgowan, DO, attest that this document has been prepared under my direction and personally reviewed by me in its entirety. I further attest, that it accurately reflects all work, treatment, procedures and medical decision -making performed by me. 03/26/19 15:13 a/p: 69yo male from [facility] for eval of cp/cough/abd pain -pt seen 1 week ago for similar pain -trop negative at that time -pt states cough x 3 days - productive -detox from heroin and cocaine -will send labs, cxr, ekg, lipase -epigastric pain -will medicate and re-eval for poss pna 03/26/19 15:14 pt also c/o n/v - sent for prolonged qtc, however, qtc 436 in the ED 03/26/19 15:14 no elevated wbc 03/26/19 15:15 poss infiltrate on cxr - will obtain ct chest without contrast for ateltectasis vs pna 03/26/19 15:45 pt with IgG H pylori +, will need GI follow up as outpt Heart Score/ECG Review - ECG Intrepretation Comment:: 03/26/19 14:58 sinus at 73, nl axis, nl interval, no acute st/t wave findings, lvh, unchanged from prior
[2019-03-26] MEDS ORDERED: FAMOTIDINE 20 MG/50 ML IVPB 20 MG/50 ML MG IVPB ONE (15:00)
[2019-03-26 15:23] LABS: ALBUMIN 3.7 g/dl (3.4-5.0); ALK PHOS 134 U/L (45-117); ANION GAP 5 MMOL/L (8-16); BILIRUBIN,TOTAL 0.4 mg/dL (0.2-1); BLOOD UREA NITROGEN 24 mg/dL (7-18); CALCIUM 9.8 mg/dL (8.5-10.1); CHLORIDE 104 mmol/L (98-107); CO2 31 mmol/L (21-32); CREATININE 1.2 mg/dL (0.55-1.3); GLUCOSE,RANDOM 96 mg/dL (74-106); LIPASE 79 U/L (73-393); POTASSIUM 4.6 mmol/L (3.5-5.1); SGOT/AST 32 U/L (15-37); SGPT/ALT 30 U/L (13-61); SODIUM 140 mmol/L (136-145); TOT PROT 8.6 g/dl (6.4-8.2)
--- NOTE | 2019-03-26 19:10 | PDOC ---
*Physical Exam - Vital Signs Last Vital Signs Temp Pulse Resp BP Pulse Ox 97.8 F 71 16 122/77 98 03/26/19 15:50 03/26/19 15:50 03/26/19 15:50 03/26/19 15:50 03/26/19 15:50 - Physical Exam Comments: 03/26/19 19:09 Received sign out from Dr. Veras ED Treatment Course - LABORATORY CBC & Chemistry Diagram: 03/26/19 14:39 03/26/19 14:39 - ADDITIONAL ORDERS Additional order review: Laboratory Results 03/26/19 14:39 Sodium 140 Potassium 4.6 Chloride 104 Carbon Dioxide 31 Anion Gap 5 L BUN 24 H Creatinine 1.2 Est GFR (CKD-EPI)AfAm 70.09 Est GFR (CKD-EPI)NonAf 60.47 Random Glucose 96 Calcium 9.8 Total Bilirubin 0.4 AST 32 ALT 30 Alkaline Phosphatase 134 H Troponin I < 0.02 Total Protein 8.6 H Albumin 3.7 Lipase 79 03/26/19 14:39 RBC 5.44 MCV 84.5 MCHC 32.1 RDW 16.2 H MPV 8.6 - Medications Given in the ED: ED Medications Discontinued Medications Generic Name Dose Route Start Last Admin Trade Name Freq PRN Reason Stop Dose Admin Acetaminophen 1,000 mg 03/26/19 14:56 03/26/19 15:03 Ofirmev Injection - IVPB 03/26/19 14:57 1,000 mg ONCE ONE Administration Albuterol/Ipratropium 1 amp 03/26/19 14:56 03/26/19 15:03 Duoneb - NEB 03/26/19 14:57 1 amp ONCE ONE Administration Famotidine/Sodium Chloride 20 mg in 50 mls @ 100 mls/hr 03/26/19 15:00 15:03 Pepcid 20 Mg Premixed Ivpb - IVPB 03/26/19 15:29 100 mls/hr ONCE ONE Administration Ondansetron HCl 4 mg 03/26/19 14:56 03/26/19 15:03 Zofran Injection IVPUSH 03/26/19 14:57 4 mg ONCE ONE Administration Sodium Chloride 1,000 ml 03/26/19 14:56 03/26/19 15:03 Normal Saline - IV 03/26/19 14:57 1,000 ml ONCE ONE Administration *DC/Admit/Observation/Transfer Diagnosis at time of Disposition: Bronchitis Bronchiectasis Qualifiers: Bronchiectasis type: uncomplicated Qualified Code(s): J47.9 - Bronchiectasis, uncomplicated - Discharge Dispostion Disposition: NURSING HOME FACILITY Condition at time of disposition: Stable - Prescriptions Prescriptions: Azithromycin 500 mg PO DAILY 5 Days #5 tablet - Referrals Referrals: [facility] [Provider Group] - Call tomorrow Abilio Loyola MD [Staff Physician] - Call tomorrow Mario Lundy MD [Staff Physician] - Call tomorrow - Patient Instructions Additional Instructions: You are being discharged back to [facility]. Continue taking your medications as directed. Your CT scan showed bronchitis, and bronchiectasis. You will take antibiotic: Azithromycin 500mg daily for [address] scan showed numerous nodules within your lungs. Follow up with [facility]. A referral to Dr. Loyola has been provided. Your CT scan also showed a dilated aorta. You will follow up with fashion photographer. A referral to Dr. Lundy has been provided. Finally, the CT showed a fracture of your lumbar vertebra. Follow up with your primary care physician; and discuss an orthopedic surgeon referral. Follow the recommendations of the physicians at [facility] Return to the nearest Emergency Department if you experience worsening symptoms , subjective fevers, chills, shortness of breath, chest pain, palpitations, abdominal pain, nausea, vomiting. - Post Discharge Activity
[2019-03-26 19:52] VITALS: BP 120/70; PULSE 69; TEMP 98.8
--- NOTE | 2019-03-26 22:33 | PN ---
[facility] Progress Note Note: Patient came back from emergency room with diagnosis of bronchitis. Patient is to start Azithromycin 500mg daily for [address] Malinda Aquino. Medication ordered as prescribed Laboratory Last Values WBC 7.8 K/mm3 (4.0-10.0) 03/26/19 14:39 RBC 5.44 M/mm3 (4.00-5.60) 03/26/19 14:39 Hgb 14.8 GM/dL (11.7-16.9) 03/26/19 14:39 Hct 46.0 % (35.4-49) 03/26/19 14:39 MCV 84.5 fl (80-96) 03/26/19 14:39 MCH 27.1 pg (25.7-33.7) 03/26/19 14:39 MCHC 32.1 g/dl (32.0-35.9) 03/26/19 14:39 RDW 16.2 % (11.9-15.9) H 03/26/19 14:39 Plt Count 255 K/MM3 (134-434) 03/26/19 14:39 MPV 8.6 fl (7.5-11.1) 03/26/19 14:39 Neutrophils % (Manual) No Result Required. 03/26/19 14:39 Sodium 140 mmol/L (136-145) 03/26/19 14:39 Potassium 4.6 mmol/L (3.5-5.1) 03/26/19 14:39 Chloride 104 mmol/L (98-107) 03/26/19 14:39 Carbon Dioxide 31 mmol/L (21-32) 03/26/19 14:39 Anion Gap 5 MMOL/L (8-16) L 03/26/19 14:39 BUN 24 mg/dL (7-18) H 03/26/19 14:39 Creatinine 1.2 mg/dL (0.55-1.3) 03/26/19 14:39 Est GFR (CKD-EPI)AfAm 70.09 03/26/19 14:39 Est GFR (CKD-EPI)NonAf 60.47 03/26/19 14:39 Random Glucose 96 mg/dL (74-106) 03/26/19 14:39 Calcium 9.8 mg/dL (8.5-10.1) 03/26/19 14:39 Total Bilirubin 0.4 mg/dL (0.2-1) 03/26/19 14:39 AST 32 U/L (15-37) 03/26/19 14:39 ALT 30 U/L (13-61) 03/26/19 14:39 Alkaline Phosphatase 134 U/L (45-117) H 03/26/19 14:39 Troponin I < 0.02 ng/ml (0.00-0.05) 03/26/19 18:34 Total Protein 8.6 g/dl (6.4-8.2) H 03/26/19 14:39 Albumin 3.7 g/dl (3.4-5.0) 03/26/19 14:39 Lipase 79 U/L (73-393) 03/26/19 14:39 Vital Signs Temperature 98.8 F 03/26/19 19:51 Pulse Rate 69 03/26/19 19:51 Respiratory Rate 16 03/26/19 15:50 Blood Pressure 120/70 03/26/19 19:51 O2 Sat by Pulse Oximetry (%) 99 03/26/19 19:51
[2019-03-27] MEDS ORDERED: AZITHROMYCIN 500 MG TABLET PO SCH (10:00)
--- NOTE | 2019-03-27 14:28 | EKG ---
Test Reason : Blood Pressure : / mmHG Vent. Rate : 073 BPM Atrial Rate : 073 BPM P-R Int : 146 ms QRS Dur : 086 ms QT Int : 396 ms P-R-T Axes : 070 053 070 degrees QTc Int : 436 ms SINUS RHYTHM WITH PREMATURE ATRIAL COMPLEXES VOLTAGE CRITERIA FOR LEFT VENTRICULAR HYPERTROPHY NONSPECIFIC ST ABNORMALITY ABNORMAL ECG WHEN COMPARED WITH ECG OF 26-MAR-2019 10:33, NONSPECIFIC T WAVE ABNORMALITY NO LONGER EVIDENT IN LATERAL LEADS Confirmed by TOSIN ALVES MD ([id number]) on 03/27/2019 2:28:11 PM Referred By: Confirmed By:TOSIN ALVES MD
== END 2019-03-26 21:45 ==
LOC: JER 12:41
PROC: 3E0337Z Introduction of Electrolytic and Water Balance Substance into Peripheral Vein, Percutaneous Approach (ICD-10-PCS; principal; 2019-03-26)
PROC: 3E033NZ Introduction of Analgesics, Hypnotics, Sedatives into Peripheral Vein, Percutaneous Approach (ICD-10-PCS; 2019-03-26)
PROC: 3E0F7GC Introduction of Other Therapeutic Substance into Respiratory Tract, Via Natural or Artificial Opening (ICD-10-PCS; 2019-03-26)
PROC: 3E033GC Introduction of Other Therapeutic Substance into Peripheral Vein, Percutaneous Approach (ICD-10-PCS; 2019-03-26)
DX: J40 Bronchitis, not specified as acute or chronic (principal); J47.9 Bronchiectasis, uncomplicated; Z21 Asymptomatic human immunodeficiency virus [HIV] infection status; F19.10 Other psychoactive substance abuse, uncomplicated; F17.210 Nicotine dependence, cigarettes, uncomplicated; E78.00 Pure hypercholesterolemia, unspecified; I10 Essential (primary) hypertension
CPT/HCPCS: 36415; 71045-TC-FY; 71250-TC; 80053; 83690; 84484; 85027; 93005; 93010; 99284-25; J0131; J7030